=== PATIENT | female | born 1940 | race Caucasian/White ===

== ENCOUNTER 2017-11-25 11:23 | Inpatient (IN) ==
[2017-11-25] MEDS ORDERED: Naloxone Inj 2 MG/2 ML Vial IV.PUSH ONE ×3 (11:48→23:30)
[2017-11-25] MEDS ORDERED: Sod Chloride 0.9% Inj 1,000 ML IV.SIG ONE (11:48)
--- NOTE | 2017-11-25 12:19 | ED ---
HPI General Chief Complaint: Altered Mental Status Stated Complaint: Altered Mental Status Time Seen by Provider: 11/25/17 11:48 Source: patient and family Mode of arrival: EMS Limitations: altered mental status History of Present Illness HPI narrative: 77-year-old female patient with history of DVT and PE, currently on Coumadin, hypertension, pacemaker, CHF, or sent to the ER today brought in by response team from the fifth floor parking garage, apparently according to the she had called him at 10 PM last night and had told him that the car was not starting, and that she was going to be spending the night with friends, and when he came to look for the car today found her unresponsive in the car. She was given a dose of Narcan in the car by the rapid response team and it was more arousable after that but she falls asleep, arousable with some sternal rubs, poor respiration effort. She was given oxygen, saturations were in the 80s. She is a DNR according to the and when she was more arousable also confirms this, does not want to be intubated. I gave her 2 of Narcan she was a bit more arousable but still disoriented, poor breathing effort still. She does not know what happened, states that her car was not starting, but does not really remember what happened after that. Related Data Home Medications Medication Instructions Recorded Confirmed acetaminophen-codeine 1 tab PO Q6-8H PRN 11/25/17 11/25/17 [Tylenol-Codeine #3] furosemide [Lasix] 20 mg PO DAILY 11/25/17 11/25/17 tramadol 50 mg PO BID PRN 11/25/17 11/25/17 Allergies Allergy/AdvReac Type Severity Reaction Status Date / Time No Known Allergies Allergy Unverified 11/25/17 11:48 Review of Systems ROS Unobtainable unobtainable due to mental status PMFSH Medical History Medical History CHF (congestive heart failure) (Acute) Hx of hysterectomy (Acute) Pacemaker (Acute) Surgical History Surgical History History of total left knee replacement (TKR) (Acute) Hx of appendectomy (Acute) Hx of cardiac catheterization (Acute) Hx of cholecystectomy (Acute) Social History Social History Substance History: No History of Abuse Smoking Status: Former smoker Tobacco Type: Cigarettes How Often Do You Have a Drink Containing Alcohol: Never Recent Travel in [facility] within the Last 8 Weeks: No Recent Out of Country Travel within the Last 8 Weeks: No Immunization History Tetanus Immunization: Unsure Hx Influenza Vaccine This Season: Unable to Assess Exam Narrative Exam Narrative: GENERAL: Well-developed elderly white female patient currently in moderate distress, lethargic, barely arousable, sonorous respirations. SKIN: Focused skin assessment warm/dry. HEAD: Atraumatic. Normocephalic. EYES: Pupils equal and round. No scleral icterus. No injection or drainage. ENT: No nasal bleeding or discharge. Mucous membranes pink and moist. NECK: Trachea midline. No JVD. CARDIOVASCULAR: Regular rate and rhythm. No murmur appreciated. RESPIRATORY: No accessory muscle use. Left basilar crackles. Breath sounds equal bilaterally. GASTROINTESTINAL: Abdomen soft, non-tender, nondistended. Hepatic and splenic margins not palpable. MUSCULOSKELETAL: No obvious deformities. No clubbing. No cyanosis. No edema. NEUROLOGICAL: Lethargic. No obvious cranial nerve deficits. Motor grossly within normal limits. Slurred speech. PSYCHIATRIC: Lethargic, unable to assess; insight and judgment poor. Course Initial Documented Vital Signs Temperature 98.5 F 11/25/17 11:34 Pulse Rate 71 11/25/17 11:34 Respiratory Rate 30 H 11/25/17 11:34 Blood Pressure 89/50 L 11/25/17 11:34 Pulse Oximetry 92 L 11/25/17 11:34 Last Documented Vital Signs Temperature 98.5 F 11/25/17 11:34 Pulse Rate 80 11/25/17 14:00 Respiratory Rate 22 11/25/17 14:00 Blood Pressure 106/54 L 11/25/17 14:00 Pulse Oximetry 95 11/25/17 14:00 Medical Decision Making MDM Narrative Medical decision making narrative: EKG did not show significant dysrhythmias, paced rhythm. She was initially hypotensive in the ER and IV fluids were initiated. Patient had some initial response to Narcan and additional 2 mg of Narcan was given in the ER with improvement in mental status although she still quite disoriented. Apparently patient has been there all night, had called at 10 PM last night stating that her car would not start and she was in the fifth floor parking garage in [facility]. She currently not able to give me much further history. confirms that she has a DNR. Patient also states that she did not want to be intubated once she was able to talk and her as talking about possible intubation. At this point, my plan would be to admit the patient for further treatment and evaluation. Case is discussed with [facility] resident service for admission. Differential Diagnosis Differential Diagnosis: Opiate overdose versus sepsis versus dehydration versus acute intracranial processes Lab Data Lab results reviewed: Yes I reviewed the patient's lab results. Result diagrams: 11/25/17 12:00 11/25/17 12:00 Lab Results 11/25/17 11/25/17 11/25/17 Range/Units 11:48 12:00 12:00 WBC 9.0 (4.0-11.0) th/mm3 RBC 4.30 (4.00-5.30) mil/mm3 Hgb 11.4 L (11.6-15.3) gm/dL Hct 37.3 (35.0-46.0) % MCV 86.8 (80.0-100.0) fL MCH 26.6 L (27.0-34.0) pg MCHC 30.6 L (32.0-36.0) % RDW 17.7 H (11.6-17.2) % Plt Count 252 (150-450) th/mm3 MPV 8.9 (7.0-11.0) fL Neut % (Auto) 92.6 H (16.0-70.0) % Lymph % (Auto) 4.3 L (9.0-44.0) % [place] % (Auto) 2.9 (0.0-8.0) % Eos % (Auto) 0.0 (0.0-4.0) % Baso % (Auto) 0.2 (0.0-2.0) % Neut # (Auto) 8.3 H (1.8-7.7) th/mm3 Lymph # (Auto) 0.4 L (1.0-4.8) th/mm3 [place] # (Auto) 0.3 (0.0-0.9) th/mm3 Eos # (Auto) 0.0 (0.0-0.4) th/mm3 Baso # (Auto) 0.0 (0.0-0.2) th/mm3 WBC Differential . Differential Comment Auto diff final PT 16.7 H (9.8-11.6) sec INR 1.7 Ratio Patient Temperature 98.6 O2 Saturation 91 (90-100) % ABG pH 7.25 L* (7.380-7.420) ABG pCO2 45 H (38-42) mmHg ABG pO2 79 (61-120) mmHg ABG HCO3 19 L (22-26) mmol/L ABG O2 Content 13.6 (12.0-20.0) Vol % ABG Base Excess -7.1 L (-2-2) mmol/L ABG Methemoglobin 1.3 (0-2) % Hemoglobin 10.5 L (12.0-16.0) G/DL Carboxyhemoglobin 0.9 (0-4) % Inspired O2 21 % Critical Value Yes Sodium (136-145) meq/L Potassium (3.5-5.1) meq/L Chloride (98-107) meq/L Carbon Dioxide (21.0-32.0) meq/L Anion Gap (5-15) meq/L BUN (7-18) mg/dL Creatinine (0.50-1.00) mg/dL Estimated GFR (>89) mL/min Random Glucose (74-106) mg/dL Calcium (8.5-10.1) mg/dL Total Bilirubin (0.2-1.0) mg/dL AST (15-37) U/L ALT (10-53) U/L Alkaline Phosphatase (45-117) U/L Troponin I (0.02-0.05) ng/mL B-Natriuretic Peptide (0-100) pg/mL Total Protein (6.4-8.2) g/dL Albumin (3.4-5.0) g/dL Acetaminophen (10.0-30.0) mcg/mL Serum Alcohol (0-5) mg/dL 11/25/17 11/25/17 Range/Units 12:00 12:00 WBC (4.0-11.0) th/mm3 RBC (4.00-5.30) mil/mm3 Hgb (11.6-15.3) gm/dL Hct (35.0-46.0) % MCV (80.0-100.0) fL MCH (27.0-34.0) pg MCHC (32.0-36.0) % RDW (11.6-17.2) % Plt Count (150-450) th/mm3 MPV (7.0-11.0) fL Neut % (Auto) (16.0-70.0) % Lymph % (Auto) (9.0-44.0) % [place] % (Auto) (0.0-8.0) % Eos % (Auto) (0.0-4.0) % Baso % (Auto) (0.0-2.0) % Neut # (Auto) (1.8-7.7) th/mm3 Lymph # (Auto) (1.0-4.8) th/mm3 [place] # (Auto) (0.0-0.9) th/mm3 Eos # (Auto) (0.0-0.4) th/mm3 Baso # (Auto) (0.0-0.2) th/mm3 WBC Differential Differential Comment PT (9.8-11.6) sec INR Ratio Patient Temperature O2 Saturation (90-100) % ABG pH (7.380-7.420) ABG pCO2 (38-42) mmHg ABG pO2 (61-120) mmHg ABG HCO3 (22-26) mmol/L ABG O2 Content (12.0-20.0) Vol % ABG Base Excess (-2-2) mmol/L ABG Methemoglobin (0-2) % Hemoglobin (12.0-16.0) G/DL Carboxyhemoglobin (0-4) % Inspired O2 % Critical Value Sodium 141 (136-145) meq/L Potassium 5.0 (3.5-5.1) meq/L Chloride 110 H (98-107) meq/L Carbon Dioxide 20.5 L (21.0-32.0) meq/L Anion Gap 11 (5-15) meq/L BUN 24 H (7-18) mg/dL Creatinine 1.77 H (0.50-1.00) mg/dL Estimated GFR 28 L (>89) mL/min Random Glucose 111 H (74-106) mg/dL Calcium 8.3 L (8.5-10.1) mg/dL Total Bilirubin 0.5 (0.2-1.0) mg/dL AST 54 H (15-37) U/L ALT 26 (10-53) U/L Alkaline Phosphatase 149 H (45-117) U/L Troponin I 0.03 (0.02-0.05) ng/mL B-Natriuretic Peptide 280 H (0-100) pg/mL Total Protein 6.4 (6.4-8.2) g/dL Albumin 3.2 L (3.4-5.0) g/dL Acetaminophen 21.9 (10.0-30.0) mcg/mL Serum Alcohol Less than 3 (0-5) mg/dL Imaging Data Attestation: I personally reviewed and interpreted this imaging study as follows : Radiologist's impression: Chest X-Ray 11/25/17 11:48 CONCLUSION: 1. Asymmetric interstitial prominence predominantly on the right. Findings could represent asymmetric pulmonary edema or developing infiltrate. 2. Cardiomegaly. Head CT 11/25/17 11:49 CONCLUSION: 1. No acute intracranial abnormality. . ECG Data Attestation: I personally reviewed and interpreted this ECG as follows: Interpretation: EKG shows a ventricular paced rhythm at a rate of 70 bpm. No signs of acute ST elevations or depressions. Discharge Plan Discharge Disposition Patient Disposition: 30 Still Patient Discharge Condition Condition: Fair Discharge Details Anticipated Discharge Date: 11/25/17 Diagnosis: Altered mental status, Opioid overdose Physicians Team ED Provider: Feliberto Neri Primary Care Provider: UNKNOWN, Rxs /Orders / Referrals /Forms Prescriptions: No Action acetaminophen-codeine [Tylenol-Codeine #3] 300-30 mg Tablet 1 tab PO Q6-8H PRN (Reason: Pain) RF: 0 tramadol 50 mg Tablet 50 mg PO BID PRN (Reason: Pain) RF: 0 furosemide [Lasix] 20 mg Tablet 20 mg PO DAILY RF: 0 Discharge Interventions Interventions: Vital Signs Last Done: 11/25/17 14:00 Status ED Status: With Doctor
[2017-11-25 12:27] LABS: ABG Base Excess -7.1 mmol/L (-2-2); ABG PCO2 45 mmHg (38-42); ABG PO2 79 mmHg (61-120)
[2017-11-25 12:29] LABS: Baso % (Auto) 0.2 % (0.0-2.0); Hematocrit 37.3 % (35.0-46.0); Hemoglobin 11.4 gm/dL (11.6-15.3); Lymph # (Auto) 0.4 th/mm3 (1.0-4.8); Lymph % (Auto) 4.3 % (9.0-44.0); Mean Corpuscular Hemoglobin 26.6 pg (27.0-34.0); Mean Corpuscular Volume 86.8 fL (80.0-100.0); Mean Platelet Volume 8.9 fL (7.0-11.0); Mono # (Auto) 0.3 th/mm3 (0.0-0.9); Mono % (Auto) 2.9 % (0.0-8.0); Neut # (Auto) 8.3 th/mm3 (1.8-7.7); Neut % (Auto) 92.6 % (16.0-70.0); Platelet Count 252 th/mm3 (150-450); Red Cell Distribution Width 17.7 % (11.6-17.2)
[2017-11-25 12:33] LABS: INR 1.7 Ratio; Prothrombin Time 16.7 sec (9.8-11.6)
[2017-11-25 12:34] LABS: Mean Corpuscular HGB Conc 30.6 % (32.0-36.0)
[2017-11-25 12:44] LABS: Alanine Aminotransferase 26 U/L (10-53); Albumin 3.2 g/dL (3.4-5.0); Anion Gap 11 meq/L (5-15); Aspartate Aminotransferase 54 U/L (15-37); Blood Urea Nitrogen 24 mg/dL (7-18); Calcium 8.3 mg/dL (8.5-10.1); Carbon Dioxide 20.5 meq/L (21.0-32.0); Chloride 110 meq/L (98-107); Glomerular Filtration Rate 28 mL/min (>89); Glucose,Random 111 mg/dL (74-106); Sodium 141 meq/L (136-145)
--- NOTE | 2017-11-25 12:46 | XR ---
EXAM DATE: 11/25/2017 12:41 PM EDT AGE/SEX: 77 years / Female INDICATIONS: Short of breath and congestion. CLINICAL DATA: This is the patient's initial encounter. Patient reports that signs and symptoms have been present for 1 day and indicates a pain score of 0/10. MEDICAL/SURGICAL HISTORY: None. None. COMPARISON: No prior exams available for comparison. FINDINGS: A single AP view of the chest demonstrates asymmetric interstitial prominence predominantly on the ri ght. Heart size is prominent. Left subclavian bipolar pacer is radiographically intact. Osseous struc tures are intact CONCLUSION: 1. Asymmetric interstitial prominence predominantly on the right. Findings could represent asymmetri c pulmonary edema or developing infiltrate. 2. Cardiomegaly. Electronically signed by: Evangelist Garcia MD 11/25/2017 12:45 PM EDT
[2017-11-25 12:48] LABS: Acetaminophen 21.9 mcg/mL (10.0-30.0); Alkaline Phosphatase 149 U/L (45-117); Total Protein 6.4 g/dL (6.4-8.2); Troponin I 0.03 ng/mL (0.02-0.05)
--- NOTE | 2017-11-25 13:34 | CT ---
EXAM DATE: 11/25/2017 1:30 PM EDT AGE/SEX: 77 years / Female INDICATIONS: Altered mental status, found unresponsive. CLINICAL DATA: This is the patient's initial encounter. Patient reports that signs and symptoms have been present for 1 day and indicates a pain score of Nonresponsive. MEDICAL/SURGICAL HISTORY: Congestive heart failure. Pacemaker. Hysterectomy. RADIATION DOSE: 36.78 CTDI (mGy) COMPARISON: No prior exams available for comparison. TECHNIQUE: CT of the head without contrast. Using automated exposure control and adjustment of the mA and/or kV according to patient size, radiation dose was kept as low as reasonably achievable to ob tain optimal diagnostic quality images. DICOM format image data is available electronically for revi ew and comparison. FINDINGS: Cerebrum: The ventricles are normal for age. No evidence of midline shift, mass lesion, hemorrhage or acute infarction. No extraaxial fluid collections are seen. Posterior Fossa: The cerebellum and brainstem are intact. The 4th ventricle is midline. The cerebe llopontine angle is unremarkable. Extracranial: The visualized portion of the orbits is intact. Skull: The calvaria is intact. No evidence of skull fracture. CONCLUSION: 1. No acute intracranial abnormality. . Electronically signed by: Carlos Montero MD 11/25/2017 1:32 PM EDT
[2017-11-25 14:28] LABS: Amorphous Sediment,Urine Rare /hpf; Bacteria,Urine Few /hpf; Bilirubin,Urine Negative (Negative); Clarity,Urine Cloudy (Clear); Color,Urine Amber (Yellw/Straw); Glucose,Urine (UA) Negative (Negative); Hyaline Casts,Urine 46 /lpf (0-3); Leukocyte Esterase,Urine Trace (Negative); Mucus,Urine Few /lpf (Occasional); Nitrite,Urine Negative (Negative); Specific Gravity,Urine 1.026 (1.002-1.035); Squamous Epithelial Cell,Urine 1 /hpf (0-5)
[2017-11-25] MEDS ORDERED: Acetaminophen 325 MG Tablet PO PRN (15:48)
[2017-11-25] MEDS ORDERED: Bisacodyl 10 MG Supp RECTAL PRN (15:48)
[2017-11-25] MEDS ORDERED: Furosemide 20 MG Tablet PO SCH (16:00)
--- NOTE | 2017-11-25 16:01 | P.HPFP ---
History of Present Illness Primary Care Physician: UNKNOWN History of Present Illness: 77-year-old female, unknown past medical history, presents after being found unconscious in car by her . Following history is obtained from the ED physician and the , because the patient does not remember the series of advance and is altered during the time of exam. Patient was leaving the hospital yesterday and called her she got in her car and said that her car would not start. She said that she is going to go to a friend's house instead of going back to her [place]. The said okay, and did not hear from her. He came to the hospital this morning and found her unconscious in her car. Her GCS was 3 at that time and she was hypotensive, and given IV fluids and Narcan and improved. She was previously in respiratory distress, and has been improving over the day today. Per , the patient uses a heavy amount of Tylenol with codeine and tramadol for her knee replacement. There is suspicion that she has overdosed. - Diagnosis (1) Respiratory distress (2) Altered mental status (3) Opioid overdose (4) CHF (congestive heart failure) (5) Elevated troponin (6) Elevated serum creatinine (7) Nutrition, metabolism, and development symptoms Inpatient Certification: I certify that the inpatient services were ordered in accordance with Medicare regulations governing the order. This includes certification that hospital inpatient services are reasonable and necessary and in the case of services not specified as inpatient-only under 42 CFR 419.22(n), that they are appropriately provided as inpatient services in accordance to with the 2-midnight benchmark under 43 CFR 412.3(e) Review of Systems unobtainable due to mental status (Patient is sleeping when we come into the room, difficult to wake up) PMFSH - History History Provided By: Family Member - Medical History Medical History: Medical History (Last Reviewed 11/25/17 @ 17:30 by Claudine Lassiter MD, R2) CHF (congestive heart failure) Hx of hysterectomy Pacemaker - Surgical History Surgical History: Surgical History (Last Reviewed 11/25/17 @ 17:30 by Claudine Lassiter MD, R2) History of total left knee replacement (TKR) Hx of appendectomy Hx of cardiac catheterization Hx of cholecystectomy - Tobacco History Smoking Status: Former smoker Tobacco Type: Cigarettes - Alcohol History How Often Do You Have a Drink Containing Alcohol: Never - Substance Use History Substance History: No History of Abuse - Travel History Recent Travel in the [place] Within the Last 8 Weeks: No Recent Travel Out of the Country Within the Last 8 Weeks: No - Immunization History Tetanus Immunization: Unsure Hx Influenza Vaccine This Season: Unable to Assess Medications and Allergies Allergies Allergy/AdvReac Type Severity Reaction Status Date / Time No Known Allergies Allergy Unverified 11/25/17 11:48 Home Medications Medication Instructions Recorded Confirmed Type acetaminophen-codeine 1 tab PO Q6-8H PRN 11/25/17 11/25/17 History [Tylenol-Codeine #3] furosemide [Lasix] 20 mg PO DAILY 11/25/17 11/25/17 History tramadol 50 mg PO BID PRN 11/25/17 11/25/17 History Exam Vital signs: Vital Signs 11/25/17 11:34 11/25/17 11:49 11/25/17 11:51 Temperature 98.5 F Pulse Rate 71 71 70 Respiratory Rate 30 H 30 H Blood Pressure 89/50 L 96/53 L Pulse Oximetry 92 L 92 L 90 L 11/25/17 12:51 11/25/17 13:00 11/25/17 14:00 Temperature Pulse Rate 68 68 80 Respiratory Rate 25 H 25 H 22 Blood Pressure 87/54 L 90/53 L 106/54 L Pulse Oximetry 95 93 L 95 11/25/17 15:00 Temperature Pulse Rate 80 Respiratory Rate 20 Blood Pressure 106/54 L Pulse Oximetry 96 Intake & Output 11/24/17 11/25/17 11/25/17 18:59 06:59 18:59 Weight 90.718 kg - Constitutional no acute distress (Patient very tired, falling asleep and not making sense) - Routine HEENT Exam Head: Present: normocephalic Eye: Present: normal accommodation ENT: Present: mucous membranes moist - Routine Neck Exam Present: supple. Absent: carotid bruit - Routine Respiratory Exam Present: accessory muscle use, rhonchi, wheezes (Patient cannot sit up for exam , auscultated anteriorly), crackles - Routine Cardiovascular Exam Present: RRR, S1, S2 - Routine Abdominal Exam Present: soft, normoactive bowel sounds. Absent: tenderness - Routine Extremities Exam Absent: cyanosis, clubbing, edema, calf tenderness - Routine Skin Exam Present: intact. Absent: cyanosis, erythema - Routine Neurological Exam Present: alert, oriented X3, CN II-XII intact, normal speech. Absent: sensory deficit, motor deficit, facial asymmetry Results - Labs Result diagrams: 11/25/17 12:00 11/25/17 12:00 Abnormal lab results 11/25/17 11/25/17 11/25/17 Range/Units 11:48 12:00 12:00 Hgb 11.4 L (11.6-15.3) gm/dL MCH 26.6 L (27.0-34.0) pg MCHC 30.6 L (32.0-36.0) % RDW 17.7 H (11.6-17.2) % Neut % (Auto) 92.6 H (16.0-70.0) % Lymph % (Auto) 4.3 L (9.0-44.0) % Neut # (Auto) 8.3 H (1.8-7.7) th/mm3 Lymph # (Auto) 0.4 L (1.0-4.8) th/mm3 PT 16.7 H (9.8-11.6) sec ABG pH 7.25 L* (7.380-7.420) ABG pCO2 45 H (38-42) mmHg ABG HCO3 19 L (22-26) mmol/L ABG Base Excess -7.1 L (-2-2) mmol/L Hemoglobin 10.5 L (12.0-16.0) G/DL Chloride (98-107) meq/L Carbon Dioxide (21.0-32.0) meq/L BUN (7-18) mg/dL Creatinine (0.50-1.00) mg/dL Estimated GFR (>89) mL/min Random Glucose (74-106) mg/dL Calcium (8.5-10.1) mg/dL AST (15-37) U/L Alkaline Phosphatase (45-117) U/L B-Natriuretic Peptide (0-100) pg/mL Albumin (3.4-5.0) g/dL Urine Clarity (Clear) Urine Protein (Neg-Trace) mg/dL Urine Urobilinogen (Less than 2) mg/dL Ur Leukocyte Esterase (Negative) Urine RBC (0-3) /hpf Urine WBC (0-5) /hpf Amorphous Sediment (None) /hpf Urine Bacteria (None) /hpf Urine Mucus (Occasional) /lpf 11/25/17 11/25/17 11/25/17 Range/Units 12:00 12:00 14:00 Hgb (11.6-15.3) gm/dL MCH (27.0-34.0) pg MCHC (32.0-36.0) % RDW (11.6-17.2) % Neut % (Auto) (16.0-70.0) % Lymph % (Auto) (9.0-44.0) % Neut # (Auto) (1.8-7.7) th/mm3 Lymph # (Auto) (1.0-4.8) th/mm3 PT (9.8-11.6) sec ABG pH (7.380-7.420) ABG pCO2 (38-42) mmHg ABG HCO3 (22-26) mmol/L ABG Base Excess (-2-2) mmol/L Hemoglobin (12.0-16.0) G/DL Chloride 110 H (98-107) meq/L Carbon Dioxide 20.5 L (21.0-32.0) meq/L BUN 24 H (7-18) mg/dL Creatinine 1.77 H (0.50-1.00) mg/dL Estimated GFR 28 L (>89) mL/min Random Glucose 111 H (74-106) mg/dL Calcium 8.3 L (8.5-10.1) mg/dL AST 54 H (15-37) U/L Alkaline Phosphatase 149 H (45-117) U/L B-Natriuretic Peptide 280 H (0-100) pg/mL Albumin 3.2 L (3.4-5.0) g/dL Urine Clarity Cloudy H (Clear) Urine Protein 30 H (Neg-Trace) mg/dL Urine Urobilinogen 2.0 H (Less than 2) mg/dL Ur Leukocyte Esterase Trace H (Negative) Urine RBC 5 H (0-3) /hpf Urine WBC 7 H (0-5) /hpf Amorphous Sediment Rare H (None) /hpf Urine Bacteria Few H (None) /hpf Urine Mucus Few H (Occasional) /lpf Short CBC 11/25/17 Range/Units 12:00 WBC 9.0 (4.0-11.0) th/mm3 Hgb 11.4 L (11.6-15.3) gm/dL Hct 37.3 (35.0-46.0) % Plt Count 252 (150-450) th/mm3 BMP 11/25/17 12:00 Sodium 141 Potassium 5.0 Chloride 110 H Carbon Dioxide 20.5 L BUN 24 H Creatinine 1.77 H Calcium 8.3 L Cardiac Enzymes 11/25/17 Range/Units 12:00 Troponin I 0.03 (0.02-0.05) ng/mL Liver Function 11/25/17 Range/Units 12:00 Total Bilirubin 0.5 (0.2-1.0) mg/dL AST 54 H (15-37) U/L ALT 26 (10-53) U/L Alkaline Phosphatase 149 H (45-117) U/L Albumin 3.2 L (3.4-5.0) g/dL Urine 11/25/17 Range/Units 14:00 Urine Color Maura (Yellw/Straw) Urine Clarity Cloudy H (Clear) Urine pH 5.0 (5.0-8.5) Ur Specific [place] 1.026 (1.002-1.035) Urine Protein 30 H (Neg-Trace) mg/dL Urine Glucose (UA) Negative (Negative) mg/dL - Imaging Impressions Chest X-Ray 11/25/17 11:48 CONCLUSION: 1. Asymmetric interstitial prominence predominantly on the right. Findings could represent asymmetric pulmonary edema or developing infiltrate. 2. Cardiomegaly. Head CT 11/25/17 11:49 CONCLUSION: 1. No acute intracranial abnormality. . Caprini VTE Risk Assessment Caprini VTE Risk Assessment: No/Low Risk (score <= 1) Caprini Risk Assessment Model: Point Value = 1 Point Value = 2 Point Value = 3 Point Value = 5 Age 41-60 Minor surgery BMI > 25 kg/m2 Swollen legs Varicose veins or History of unexplained or recurrent spontaneous Oral contraceptives or hormone replacement Sepsis (< 1 month) Serious lung disease, including pneumonia (< 1 month) Abnormal pulmonary function Acute myocardial infarction Congestive heart failure (< 1 month) History of inflammatory bowel disease Medical patient at bed rest Age 61-74 Arthroscopic surgery Major open surgery (> 45 min) Laparoscopic surgery (> 45 min) Malignancy Confined to bed (> 72 hours) Immobilizing plaster cast Central venous access Age >= 75 History of VTE Family history of VTE Factor V Leiden Prothrombin [id number] Lupus anticoagulant Anticardiolipin antibodies Elevated serum homocysteine Heparin-induced thrombocytopenia Other congenital or acquired thrombophilia Stroke (< 1 month) Elective arthroplasty Hip, pelvis, or leg fracture Acute spinal cord injury (< 1 month) Prophylaxis Regimen: Total Risk Factor Score Risk Level Prophylaxis Regimen 0-1 Low Early ambulation 2 Moderate Order ONE of the following: *Sequential Compression Device (SCD) *Heparin 5000 units SQ BID 3-4 Higher Order ONE of the following medications: *Heparin 5000 units SQ TID *Enoxaparin/Lovenox 40 mg SQ daily (WT < 150 kg, CrCl > 30 mL/min) *Enoxaparin/Lovenox 30 mg SQ daily (WT < 150 kg, CrCl > 10-29 mL/min) *Enoxaparin/Lovenox 30 mg SQ BID (WT < 150 kg, CrCl > 30 mL/min) AND/OR *Sequential Compression Device (SCD) 5 or more Highest Order ONE of the following medications: *Heparin 5000 units SQ TID (Preferred with Epidurals) *Enoxaparin/Lovenox 40 mg SQ daily (WT < 150 kg, CrCl > 30 mL/min) *Enoxaparin/Lovenox 30 mg SQ daily (WT < 150 kg, CrCl > 10-29 mL/min) *Enoxaparin/Lovenox 30 mg SQ BID (WT < 150 kg, CrCl > 30 mL/min) AND *Sequential Compression Device (SCD) Assessment and Plan - Assessment (1) Respiratory distress Code(s): R06.03 - Acute respiratory distress Status: Acute Plan: Due to opiate overdose versus CHF fluid overload versus COPD exacerbation versus pneumonia versus PE Patient with GCS of 3 initially in ED, poor respiration effort, saturations in the 80s on site On exam respiratory rate 20, blood pressure 97/52, 95% O2 on 10 L O2 ABG: PH 7.25, bicarb 19 Follow-up repeat ABG Chest x-ray: Asymmetric interstitial prominence on right, asymmetric pulmonary edema versus developing infiltrate. Cardiomegaly Follow-up pro calcitonin Follow-up BNP If repeat ABG continues to be poor, we may consider monitoring in the ICU (2) Altered mental status Code(s): R41.82 - Altered mental status, unspecified Status: Acute Plan: Due to opiate overdose versus CHF fluid overload versus COPD exacerbation versus pneumonia versus PE versus MT versus stroke CT head negative Improvement seen status post Narcan 2 mg IV push, with 1 L IV bolus normal saline Follow-up plan as above Follow-up ACS workup Stroke workup low on differential at this time (3) Opioid overdose Code(s): T40.2X1A - Poisoning by other opioids, accidental (unintentional), initial encounter Status: Acute Plan: Status post Narcan IM 2 mg Respiratory rate 20, will transfer to ICU if ABG continues to deteriorate or patient begins to hyperventilate, requiring additional Narcan No indication for additional Narcan at this time (4) CHF (congestive heart failure) Code(s): I50.9 - Heart failure, unspecified Status: Acute Plan: History of CHF with an ejection fraction of 30% per family Planes evidence of edema on chest x-ray Added IV furosemide 40 mg IV daily Continue home p.o. n.p.o. as tolerated as well (5) Elevated troponin Code(s): R74.8 - Abnormal levels of other serum enzymes Status: Acute Plan: Initial troponin 0.03, subsequent troponin 0 0.12, no complaints of CP f/u stat EKG f/u 3rd troponin May be due to MT versus PE versus renal dysfunction (6) Elevated serum creatinine Code(s): R79.89 - Other specified abnormal findings of blood chemistry Status : Acute Plan: Creat 1.77, unknown baseline STORMY vs CKD caution w/ nephrotoxins, NSAIDS (7) Nutrition, metabolism, and development symptoms Code(s): R63.8 - Other symptoms and signs concerning food and fluid intake Status: Acute
[2017-11-25 17:16] LABS: Troponin I 0.12 ng/mL (0.02-0.05)
[2017-11-25 17:29] LABS: CKMB Percent 2.5 % (0.0-4.0); Creatine Kinase MB 19.8 ng/mL (0.5-3.6)
[2017-11-25 18:18] LABS: ABG Base Excess -10.4 mmol/L (-2-2); ABG PCO2 47 mmHg (38-42); ABG PO2 84 mmHg (61-120)
[2017-11-25] MEDS ORDERED: Azithromycin Inj 500 MG in Sodium Chlor 0.9% Inj 250 ML IV.SIG SCH (20:00)
[2017-11-25 21:15] LABS: ABG Base Excess -12.5 mmol/L (-2-2); ABG PCO2 44 mmHg (38-42); ABG PO2 83 mmHg (61-120)
--- NOTE | 2017-11-25 21:31 | XR ---
EXAM DATE: 11/25/2017 9:20 PM EDT AGE/SEX: 77 years / Female INDICATIONS: Short of breath. CLINICAL DATA: This is the patient's subsequent encounter. Patient reports that signs and symptoms h ave been present for 1 day and indicates a pain score of Nonresponsive. MEDICAL/SURGICAL HISTORY: Non-responsive. Non-responsive. COMPARISON: [facility], CHEST 1V SINGLE AP, 11/25/2017. . FINDINGS: There is worsening parenchymal consolidation, especially right upper lobe and left base. No large eff usions seen. No pneumothorax. Heart size stable, upper limits of normal. Cardiac pacer again noted. CONCLUSION: Worsening bilateral pulmonary infiltrates, most conspicuously in the right upper lobe and left base. Electronically signed by: Yordy Amin MD 11/25/2017 9:29 PM EDT
[2017-11-25] MEDS ORDERED: POTASSIUM CHLORIDE IV.CONT SCH (22:00)
[2017-11-25] MEDS ORDERED: SODIUM BICARBONATE IV.CONT SCH (22:00)
[2017-11-25] MEDS ORDERED: [UNRECOGNIZED DRUG - OTHER] IV.CONT SCH (22:00)
[2017-11-25] MEDS ORDERED: Piperacil/Tazo 2.25 GM Premix 50 ML IV.SIG SCH (22:00)
--- NOTE | 2017-11-25 22:22 | P.PNADD ---
Addendum to Inpatient Note Reason for Addendum: Additional Documentation Additional information: S: Patient was evaluated by residents due to ABGs showing pH of 7.17, pCO2 of 47 , pO2 84, HCO3 17 the patient was admitted for altered mental status due to suspected opioid overdose. Patient was laying in bed planing of abdominal pain. Patient was alert and oriented 3, showing improvement in mentation from admission. She denied any chest pain, shortness of breath or dizziness. She reported she has chronic back pain history and has a defibrillator. Denied any history of lung disease. The patient was more alert she still dozing on and off to sleep. O: Temp 97.9F HR: 69 RR: 12 O2 sat: 94% at 10L simple mask BP: 101/55 GEN: mild distress complaining of abdominal pain along her umbilicus Cardio: RRR, Normal S1-S2, no M/g/R Resp: Coarse breath sounds throughout lung guthrie bilaterally Abdominal: Obese abdomen, soft, positive bowel sounds, mild tenderness to palpation across umbilicus, no masses or hepatosplenomegaly, no guarding or rebound Ext: Nontender calves bilaterally, +2 DP pulse BL A/P: Patient is a 77-year-old female with past medical history of chronic back pain admitted for altered mental status, now improving. Patient is now alert and oriented 3. Being evaluated for metabolic acidosis due to suspected purulent overdose. Afebrile, repeat respiratory rate of 12. Anion gap of 11 on admission. Lab/test ordered: Repeat chest x-ray showing: Worsening bilateral pulmonary infiltrates right upper lobe and left base. -Patient antibiotic switched to Zosyn (renally dosed) due to concern for aspiration pneumonia and worsening chest x-ray compared to admission. Ceftriaxone was discontinued. Repeat ABG: Showed continued acidosis but no CO2 retention, with pH of 7.15, PCO2 of 44, PO2 of 83 and bicarb of 15 -IV bicarb of 50 mEq ordered to be given. -Plan to repeat ABG after 2 hours of bicarb administration to monitor metabolic acidosis. -Consider transferring patient to ICU no improvement in acidosis for closer monitoring. Tylenol IV ordered for pain control to patient's elevated creatinine at 1.77 Repeat respiratory rate of 12 upon reevaluation. -Narcan 1 mg IV given Follow-up EKG CMP Case discussed with attending Dr. Roman
[2017-11-25 22:44] LABS: Alanine Aminotransferase 35 U/L (10-53); Albumin 3.1 g/dL (3.4-5.0); Alkaline Phosphatase 128 U/L (45-117); Anion Gap 16 meq/L (5-15); Aspartate Aminotransferase 108 U/L (15-37); Blood Urea Nitrogen 33 mg/dL (7-18); Calcium 8.7 mg/dL (8.5-10.1); Carbon Dioxide 17.4 meq/L (21.0-32.0); Chloride 110 meq/L (98-107); Creatine Kinase 1024 U/L (26-192); Glomerular Filtration Rate 17 mL/min (>89); Glucose,Random 102 mg/dL (74-106); Potassium 4.3 meq/L (3.5-5.1); Sodium 143 meq/L (136-145); Total Protein 6.5 g/dL (6.4-8.2); Troponin I 0.17 ng/mL (0.02-0.05)
[2017-11-25] MEDS ORDERED: Naloxone Inj 0.4 MG/ML Vial ONE (22:45)
[2017-11-25 22:59] LABS: CKMB Percent 2.7 % (0.0-4.0)
[2017-11-26 00:40] LABS: ABG Base Excess -15.4 mmol/L (-2-2); ABG PCO2 38 mmHg (38-42); ABG PO2 96 mmHg (61-120)
--- NOTE | 2017-11-26 02:35 | XR ---
EXAM DATE: 11/26/2017 2:30 AM EDT AGE/SEX: 77 years / Female INDICATIONS: Shortness of breath. CLINICAL DATA: This is the patient's initial encounter. Patient reports that signs and symptoms have been present for 1 day and indicates a pain score of Nonresponsive. MEDICAL/SURGICAL HISTORY: Non-responsive. Pacemaker. COMPARISON: [facility], CHEST 1V SINGLE AP, 11/25/2017. . FINDINGS: Cardiomegaly, pacer/ICD device from a left subclavian transvenous approach, and aortic calcification again noted. There is parenchymal opacity overlying the right upper lobe, right infrahilar region and left lung base. Overall no significant interval change. CONCLUSION: No significant interval change. Electronically signed by: Lukas Jefferson MD 11/26/2017 2:33 AM EDT
--- NOTE | 2017-11-26 02:35 | XR ---
EXAM DATE: 11/26/2017 2:28 AM EDT AGE/SEX: 77 years / Female INDICATIONS: Diarrhea. CLINICAL DATA: This is the patient's initial encounter. Patient reports that signs and symptoms have been present for 1 day and indicates a pain score of Nonresponsive. MEDICAL/SURGICAL HISTORY: Non-responsive. Non-responsive. COMPARISON: No prior exams available for comparison. FINDINGS: Nonobstructive bowel gas pattern. No free air beneath the diaphragm. Patchy parenchymal consolidation in the lungs is seen. There are degenerative changes of the spine in the bone density is diminished. CONCLUSION: Nonobstructive bowel gas pattern. Electronically signed by: Lukas Jefferson MD 11/26/2017 2:34 AM EDT
--- NOTE | 2017-11-26 03:32 | CT ---
EXAM DATE: 11/26/2017 2:54 AM EDT AGE/SEX: 77 years / Female INDICATIONS: Abdomen pain. CLINICAL DATA: This is the patient's initial encounter. Patient reports that signs and symptoms have been present for 1 day and indicates a pain score of 10/10. MEDICAL/SURGICAL HISTORY: Cardiovascular disease. Pacemaker. Cholecystectomy. Appendectomy. Hysterectomy RADIATION DOSE: 23.45 CTDI (mGy) ; Patient body habitus COMPARISON: [facility] [place], ABDOMEN 2V FLAT & UPRIGHT, 11/26/2017. . TECHNIQUE: Multiple contiguous axial images were obtained through the abdomen. Images were obtained using multiple row detector helical technique. Using automated exposure control and adjustment of the mA and/or kV according to patient size, radiation dose was kept as low as reasonably achievable to o btain optimal diagnostic quality images. DICOM format image data is available electronically for rev iew and comparison. FINDINGS: There are scattered areas of parenchymal consolidation in the lower lobes. There is cardiomegaly. The patient has had previous gastric bypass procedure and there is a small hiatal hernia. Cholecystectom y clips are noted. Kidneys, adrenals, pancreas unremarkable. There is a nonspecific 1.1 cm low-densit y lesion in the spleen. There is diverticulosis of the sigmoid colon and descending colon without div erticulitis. The patient is status post appendectomy and hysterectomy. Urinary bladder is normal. No adenopathy or aneurysm. Atherosclerotic calcification of the aorta and iliac vessels are noted. IVC f ilter is present. The osseous structures demonstrate degenerative changes of the spine. CONCLUSION: 1. Diverticulosis without diverticulitis. 2. Bilateral pulmonary infiltrates. Electronically signed by: Lukas Jefferson MD 11/26/2017 3:31 AM EDT
[2017-11-26 03:36] LABS: ABG Base Excess -17.1 mmol/L (-2-2); ABG PCO2 35 mmHg (38-42); ABG PO2 94 mmHg (61-120)
[2017-11-26] MEDS ORDERED: Sodium Bicarbonate 8.4% Inj 50 MEQ/50 ML Syringe IV.PUSH ONE (04:37)
[2017-11-26] MEDS ORDERED: SODIUM BICARBONATE IV.CONT SCH (06:00)
[2017-11-26] MEDS ORDERED: Piperacil/Tazo 2.25 GM Premix 50 ML IV.SIG SCH (06:00)
[2017-11-26] MEDS ORDERED: POTASSIUM CHLORIDE IV.CONT SCH (06:00)
[2017-11-26] MEDS ORDERED: [UNRECOGNIZED DRUG - OTHER] IV.CONT SCH (06:00)
[2017-11-26 06:23] LABS: Baso % (Auto) 0.1 % (0.0-2.0); Eos # (Auto) 0.2 th/mm3 (0.0-0.4); Hematocrit 38.4 % (35.0-46.0); Hemoglobin 11.7 gm/dL (11.6-15.3); Lymph # (Auto) 0.4 th/mm3 (1.0-4.8); Lymph % (Auto) 4.8 % (9.0-44.0); Mean Corpuscular Hemoglobin 26.8 pg (27.0-34.0); Mean Platelet Volume 9.2 fL (7.0-11.0); Mono # (Auto) 0.6 th/mm3 (0.0-0.9); Mono % (Auto) 7.3 % (0.0-8.0); Neut # (Auto) 7.6 th/mm3 (1.8-7.7); Neut % (Auto) 85.8 % (16.0-70.0); Platelet Count 289 th/mm3 (150-450); Red Blood Count 4.36 mil/mm3 (4.00-5.30); Red Cell Distribution Width 17.7 % (11.6-17.2); White Blood Count 8.8 th/mm3 (4.0-11.0)
[2017-11-26 06:26] LABS: Mean Corpuscular HGB Conc 30.5 % (32.0-36.0)
[2017-11-26 06:51] LABS: Alanine Aminotransferase 81 U/L (10-53); Albumin 2.6 g/dL (3.4-5.0); Alkaline Phosphatase 96 U/L (45-117); Anion Gap 22 meq/L (5-15); Aspartate Aminotransferase 255 U/L (15-37); Blood Urea Nitrogen 39 mg/dL (7-18); Calcium 8.2 mg/dL (8.5-10.1); Carbon Dioxide 14.6 meq/L (21.0-32.0); Chloride 109 meq/L (98-107); Glomerular Filtration Rate 13 mL/min (>89); Glucose,Random 115 mg/dL (74-106); Lipase 385 U/L (73-393); Potassium 3.9 meq/L (3.5-5.1); Sodium 146 meq/L (136-145); Total Protein 5.9 g/dL (6.4-8.2)
[2017-11-26] MEDS ORDERED: Sodium Bicarbonate 8.4% Inj 150 MEQ in Dextrose 5% in Water Inj 850 ML IV.CONT SCH ×4 (07:00→10:00)
[2017-11-26] MEDS: Piperacil/Tazo 2.25 GM Premix 50 ML IV.SIG SCH ×2 (07:03→14:03)
[2017-11-26 07:05] LABS: INR 2.7 Ratio; Prothrombin Time 27.2 sec (9.8-11.6)
[2017-11-26 07:32] LABS: ABG Base Excess -17.3 mmol/L (-2-2); ABG PCO2 35 mmHg (38-42); ABG PO2 117 mmHg (61-120)
[2017-11-26 07:41] LABS: Lymphocytes 5 % (9-44); Monocytes 3 % (0-8); Myelocytes 2 % (0-0); Tallied Nucleated RBC 1 (0-0)
[2017-11-26 07:44] LABS: Platelet Estimate Normal (Normal); Platelet Morphology Normal (Normal)
[2017-11-26 07:46] LABS: Ovalocytes 1+
--- NOTE | 2017-11-26 08:05 | P.CONCC ---
History of Present Illness Service: Critical care Consult date: 11/26/17 Requesting Physician: Sofia Fallon Reason for Consult: Severe metabolic acidosis, AMS Primary Care Provider: UNKNOWN Chief Complaint: AMS History of Present Illness: Patient is a 77-year-old female with past medical history of congestive heart failure, ejection fraction 35% per , status post pacemaker placement, chronic back pain who was found unconscious in car by her . Patient chronically takes Tylenol with codeine and tramadol for pain, and there was suspicion of overdose. Her GCS was 3 at that time and patient was hypotensive, and given IV fluids and Narcan. Her respiratory status and mental status improved and she was admitted to [facility]. Patient was noted to be DNR/DNI. Initial ABG showed 7.25/45/19. Creat was 1.77. Patient was started on Zosyn and azithromycin for probable pneumonia Since admission patient had been clinically declining. She was transferred to ICU overnight for worsening pH on ABG. Today a.m. her pH was 7.1 PCO2 35 and base excess -17. She also noted to have waxing and waning levels of consciousness. Currently receiving bicarb drip and has already received 100 meq of bicarb push 100 IV. I evaluated the patient in the ICU. She is in moderate distress due to pain. She is oriented to person and sometimes to place. Waxing and waning level of consciousness. reiterated DNR/DNI status according to patient's previous wishes. Patient's lactic acid came back at 12.1. Her severe metabolic and lactic acidosis, along with abdominal pain and diarrhea concerning for mesenteric ischemia Review of Systems unobtainable due to mental status PMFSH - History History Provided By: Family Member - Medical History Medical History: Medical History (Last Reviewed 11/26/17 @ 07:56 by Jess Sabillon) CHF (congestive heart failure) Hx of hysterectomy Pacemaker - Surgical History Surgical History: Surgical History (Last Reviewed 11/26/17 @ 07:56 by Jess Sabillon) History of total left knee replacement (TKR) Hx of appendectomy Hx of cardiac catheterization Hx of cholecystectomy - Tobacco History Smoking Status: Former smoker Tobacco Type: Cigarettes - Alcohol History How Often Do You Have a Drink Containing Alcohol: Never - Substance Use History Substance History: No History of Abuse - Travel History Recent Travel in the [facility] Within the Last 8 Weeks: No Recent Travel Out of the Country Within the Last 8 Weeks: No - Immunization History Tetanus Immunization: Unsure Hx Influenza Vaccine This Season: Unable to Assess Medications and Allergies Active Medications: Active Medications Acetaminophen (Tylenol) 650 mg PO Q4H PRN PRN Reason: Temp > 100.4 Al Hydroxide/Mg Hydroxide (Milk Of Magnparnav Liq) 30 ml PO Q12H PRN PRN Reason: Mild Constipation Albuterol (Ventolin Hfa Inh) 2 puff INH Q4H PRN PRN Reason: SHORTNESS OF BREATH/WHEEZING Albuterol (Albuterol Neb (Prn)) 2.5 mg NEB Q2HR NEB PRN PRN Reason: SHORTNESS OF BREATH Last Admin: 11/26/17 00:18 Dose: 2.5 mg Albuterol (Duoneb Neb (Barney)) 1 ampul NEB Q6HR NEB BARNEY Last Admin: 11/26/17 03:19 Dose: 1 ampul Bisacodyl (Dulcolax Supp) 10 mg RECTAL DAILY PRN PRN Reason: SEVERE CONSITIPATION Furosemide (Lasix) 20 mg PO DAILY BARNEY Last Admin: 11/25/17 16:39 Dose: 20 mg Furosemide (Lasix Inj) 40 mg IV.PUSH DAILY BARNEY Last Admin: 11/25/17 19:56 Dose: 40 mg Azithromycin 500 mg/ Sodium (Chloride) 250 mls @ 250 mls/hr IV.SIG Q24H BARNEY Last Infusion: 11/26/17 00:46 Dose: Infused Lactated Ringer's (Lr 1000 Ml Inj) 1,000 mls @ 130 mls/hr IV.CONT .Q7H42M BARNEY Last Admin: 11/26/17 03:02 Dose: 130 mls/hr Piperacillin/Tazobactam/Dextrose (Zosyn 2.25 Gm Premix) 50 mls @ 100 mls/hr IV.SIG Q8HR BARNEY Last Admin: 11/26/17 07:03 Dose: 100 mls/hr Sodium Bicarbonate 150 meq/Potassium Chloride 20 meq/Sodium Chloride 1,000 mls @ 100 mls/hr IV.CONT .Q10H BARNEY Last Admin: 11/26/17 07:01 Dose: Not Given Sodium Bicarbonate 150 meq/ (Dextrose) 1,000 mls @ 150 mls/hr IV.CONT .Q6H40M BARNEY Last Admin: 11/26/17 07:02 Dose: 150 mls/hr Lactulose (Lactulose Liq) 30 ml PO DAILY PRN PRN Reason: SEVERE CONSITIPATION Ondansetron HCl (Zofran Inj) 4 mg IV.PUSH Q6H PRN PRN Reason: NAUSEA OR VOMITING Sennosides (Senokot) 17.2 mg PO Q12H PRN PRN Reason: Moderate Constipation Sodium Chloride (Ns Flush) 2 ml IV.FLUSH PRN PRN PRN Reason: FLUSH AFTER USING IV ACCESS Sodium Chloride (Ns Flush) 2 ml IV.FLUSH BID [facility] Last Admin: 11/25/17 22:22 Dose: 2 ml Allergies Allergy/AdvReac Type Severity Reaction Status Date / Time No Known Allergies Allergy Unverified 11/25/17 11:48 Home Medications Medication Instructions Recorded Confirmed Type acetaminophen-codeine 1 tab PO Q6-8H PRN 11/25/17 11/25/17 History [Tylenol-Codeine #3] furosemide [Lasix] 20 mg PO DAILY 11/25/17 11/25/17 History tramadol 50 mg PO BID PRN 11/25/17 11/25/17 History Physical Exam Vital signs: Vital Signs 11/25/17 11:34 11/25/17 11:49 11/25/17 11:51 Temperature 98.5 F Pulse Rate 71 71 70 Respiratory Rate 30 H 30 H Blood Pressure 89/50 L 96/53 L Pulse Oximetry 92 L 92 L 90 L 11/25/17 12:51 11/25/17 13:00 11/25/17 14:00 Temperature Pulse Rate 68 68 80 Respiratory Rate 25 H 25 H 22 Blood Pressure 87/54 L 90/53 L 106/54 L Pulse Oximetry 95 93 L 95 11/25/17 15:00 11/25/17 15:56 11/25/17 17:36 Temperature 98.2 F Pulse Rate 80 80 70 Respiratory Rate 20 20 20 Blood Pressure 106/54 L 109/53 L 97/52 L Pulse Oximetry 96 95 94 L 11/25/17 19:58 11/25/17 20:00 11/25/17 20:05 Temperature Pulse Rate 72 Respiratory Rate 21 Blood Pressure Pulse Oximetry 92 L 94 L 11/25/17 23:14 11/25/17 23:28 11/25/17 23:30 Temperature 97.9 F Pulse Rate 69 73 Respiratory Rate 19 32 H Blood Pressure 101/55 L Pulse Oximetry 94 L 93 L 94 L 11/25/17 23:41 11/26/17 00:00 11/26/17 00:44 Temperature 98.7 F Pulse Rate 70 101 H Respiratory Rate 32 H 29 H 32 H Blood Pressure 142/65 H Pulse Oximetry 94 L 11/26/17 00:50 11/26/17 03:21 11/26/17 03:54 Temperature 98.9 F Pulse Rate 68 68 Respiratory Rate 21 24 29 H Blood Pressure 122/68 Pulse Oximetry 94 L 95 Intake & Output 11/25/17 11/26/17 11/26/17 18:59 06:59 18:59 Intake Total 600 / 600 Output Total 200 / 200 Balance 400 / 400 Weight 90.718 kg 111.7 kg Intake: IV 500 / 500 Ofirmev Inj 1,000 mg In 100 ml 200 / 200 @ 400 mls/hr IV.SIG ONCE ONE Rx #:[id number] Azithromycin Inj 500 MG In NS 250 / 250 Inj 250 ML @ 250 mls/hr IV.SIG Q24H BARNEY Rx#:[id number] Zosyn 2.25 GM Premix 50 ML @ 50 / 50 100 mls/hr IV.SIG Q6H BARNEY Rx#: [id number] Oral 100 / 100 Output: Urine 200 / 200 Other: # Voids 2 Date of Last Bowel Movement 11/25/17 11/25/17 # Bowel Movements 3 Narrative: - Constitutional Moderate distress, waxing and waning level of consciousness - Routine HEENT Exam Head: Normocephalic ENT: Mucous membranes are dry - Routine Neck Exam supple. - Routine Respiratory Exam Air entry equal bilaterally anteriorly. Few crackles at the bases. No wheezes - Routine Cardiovascular Exam RRR, S1, S2 - Routine Abdominal Exam Abdomen is soft mild diffuse tenderness in the epigastric region - Routine Extremities Exam No cyanosis, clubbing, edema, - Routine Neurological Exam Patient has waxing and waning level of consciousness. Intermittently oriented to person and place not to time. Able to move all 4 extremities Septic Shock Reassessment Septic shock perfusion: reassessment completed Assessment and Plan - Assessment and Plan Plan: ASSESSMENT: Toxic metabolic encephalopathy/Delirium Severe metabolic acidosis/severe lactic acidosis Suspected ischemic bowel Acute kidney failure Bilateral multilobar pneumonia Severe sepsis Respiratory insufficiency Suspected opiate overdose Chronic systolic heart failure PLAN: NEURO: -Minimize sedation -Morphine for breakthrough pain watching neuro status closely -DNI RESP: -At this time patient has inadequately compensated severe metabolic acidosis. -I recommended endotracheal intubation and supportive care if aggressive care was decided but reiterated patient's previous wishes -DNR/DNI -DuoNeb every 6 hours scheduled and as needed -Continue Zosyn and azithromycin for severe pneumonia -Sputum culture if available CV: -Normal saline IV fluids 1L bolus and, continue bicarb infusion at 150 mL/h -Per patient has an ejection fraction of 35% -DC IV Lasix due to worsening renal failure and severe dehydration GI: -Suspected ischemic bowel. Patient has abdominal pain diarrhea and lactic acidosis of 12.1 -N.p.o., IV famotidine -Unable to do a CT angiogram due to creatinine of 3.4 -We will request GI/general surgery evaluation only if agrees for aggressive care : -Monitor renal function closely. Simons catheter. -Creatinine is 3.4 today on presentation was 1.77 -Severe metabolic acidosis doses secondary to combination of probable ischemic bowel, severe sepsis, and renal failure -Nephrology consulted however may choose to go hospice ID: -Antibiotics with Zosyn and azithromycin -Blood urine and sputum cultures HEME: -Monitor CBC, coags ENDO: -Electrolyte replacement per protocol cannot be used to due to renal failure -Sliding scale insulin if needed PROPH: -Bilateral lower extremity SCDs. Lovenox/famotidine LINES: -Utilize peripheral IVs, central line if needed CC time 45 min Patient is very critical, with severe uncompensated metabolic acidosis from suspected ischemic bowel, severe sepsis and worsening renal failure. Ideally she will require endotracheal intubation for supportive care, and hemodialysis to correct acidosis. However I discussed with the he is very clear about her previous wishes. She had been suffering from chronic pain for several years and did not want to be support with machines. I recommended hospice because of the limited care we can provide without intubation or hemodialysis. He is willing to transition to hospice. I have communicated with family practice service and hospice plan been consulted Code Status: DNR/DNI Discussed Condition With: FP team and
[2017-11-26] MEDS ORDERED: Morphine Sulfate Inj 2 MG/ML Vial ONE (08:26)
[2017-11-26 08:35] LABS: CKMB Percent 2.2 % (0.0-4.0)
[2017-11-26 08:44] VITALS: RESP 23
[2017-11-26] MEDS ORDERED: Sod Chloride 0.9% Inj 1,000 ML IV.SIG ONE (09:00)
[2017-11-26] MEDS ORDERED: Morphine Inj 4 MG/ML Vial ONE (09:18)
[2017-11-26] MEDS: Morphine Sulfate Inj 2 MG/ML Vial IV.PUSH PRN ×2 (11:47→15:26)
[2017-11-26 12:19] VITALS: O2SAT 97
[2017-11-26] MEDS: Morphine Inj 4 MG/ML Vial IV.PUSH PRN ×2 (12:24→14:00)
[2017-11-26 12:39] VITALS: BP 93/68; PULSE 70; TEMP 97
--- NOTE | 2017-11-26 13:55 | P.CONNP ---
<Ginny Thomson - Last Filed: 11/26/17 13:38> History of Present Illness Service: Nephrology Consult date: 11/26/17 Reason for Consult: Acute Renal Failure Primary Care Provider: UNKNOWN Chief Complaint: AMS History of Present Illness: This is a 77 y/o female who was admitted after being found unresponsive in her car. She was given Narcan and did respond per the records, there was concern for opiate overdose. We have no old labs in the system for comparison. She is in renal failure on arrival, creatinine 1.77 increased to 2.68 and again to 3.4. She also coto severe metabolic acidosis with CO2 dropping and is 14.6 at last check. Her lactic acid is also significantly elevated. Imaging shows diverticulosis without acute infection. There is concern for ischemic bowel. She was hypotensive on arrival, labs also showing hypernatremia, and she is on a bicarb gtt currently. The patient is lethargic, moaning, and unable to provide any information. Her has requested hospice evaluation, and after personally discussing her case with him, he has made it clear he does want her to be transitioned to comfort measures and does not want aggressive interventions. She is not making much urine. Review of Systems unobtainable due to mental condition, unobtainable due to mental status PMFSH - History History Provided By: Family Member - Medical / Surgical Hx Neg / Unobtainable Medical Problems Denied: Unable to Obtain Surgical History: Unable to Obtain - Medical History Medical History: Medical History (Last Reviewed 11/26/17 @ 07:56 by Jess Sabillon) CHF (congestive heart failure) Hx of hysterectomy Pacemaker - Surgical History Surgical History: Surgical History (Last Reviewed 11/26/17 @ 07:56 by Jess Sabillon) History of total left knee replacement (TKR) Hx of appendectomy Hx of cardiac catheterization Hx of cholecystectomy - Tobacco History Smoking Status: Former smoker Tobacco Type: Cigarettes - Alcohol History How Often Do You Have a Drink Containing Alcohol: Never - Substance Use History Substance History: No History of Abuse - Travel History Recent Travel in the [facility] Within the Last 8 Weeks: No Recent Travel Out of the Country Within the Last 8 Weeks: No - Immunization History Tetanus Immunization: Unsure Hx Influenza Vaccine This Season: Unable to Assess Medications and Allergies Allergies Allergy/AdvReac Type Severity Reaction Status Date / Time No Known Allergies Allergy Unverified 11/25/17 11:48 Home Medications Medication Instructions Recorded Confirmed Type acetaminophen-codeine 1 tab PO Q6-8H PRN 11/25/17 11/25/17 History [Tylenol-Codeine #3] furosemide [Lasix] 20 mg PO DAILY 11/25/17 11/25/17 History tramadol 50 mg PO BID PRN 11/25/17 11/25/17 History Active Medications: Active Medications Al Hydroxide/Mg Hydroxide (Milk Of Magnesia Liq) 30 ml PO Q12H PRN PRN Reason: Mild Constipation Albuterol (Ventolin Hfa Inh) 2 puff INH Q4H PRN PRN Reason: SHORTNESS OF BREATH/WHEEZING Albuterol (Albuterol Neb (Prn)) 2.5 mg NEB Q2HR NEB PRN PRN Reason: SHORTNESS OF BREATH Last Admin: 11/26/17 00:18 Dose: 2.5 mg Albuterol (Duoneb Neb (Barney)) 1 ampul NEB Q6HR NEB BARNEY Last Admin: 11/26/17 09:16 Dose: Not Given Bisacodyl (Dulcolax Supp) 10 mg RECTAL DAILY PRN PRN Reason: SEVERE CONSITIPATION Azithromycin 500 mg/ Sodium (Chloride) 250 mls @ 250 mls/hr IV.SIG Q24H BARNEY Last Infusion: 11/26/17 00:46 Dose: Infused Lactated Ringer's (Lr 1000 Ml Inj) 1,000 mls @ 130 mls/hr IV.CONT .Q7H42M BARNEY Last Admin: 11/26/17 03:02 Dose: 130 mls/hr Piperacillin/Tazobactam/Dextrose (Zosyn 2.25 Gm Premix) 50 mls @ 100 mls/hr IV.SIG Q8HR BARNEY Last Infusion: 11/26/17 10:43 Dose: Infused Sodium Bicarbonate 150 meq/ (Dextrose) 1,000 mls @ 50 mls/hr IV.CONT .Q20H BARNEY Last Admin: 11/26/17 10:44 Dose: 50 mls/hr Lactulose (Lactulose Liq) 30 ml PO DAILY PRN PRN Reason: SEVERE CONSITIPATION Lorazepam (Ativan Inj) 1 mg IV.PUSH Q2H PRN PRN Reason: AGITATION Last Admin: 11/26/17 10:16 Dose: 1 mg Morphine Sulfate (Morphine Inj) 2 mg IV.PUSH Q3H PRN PRN Reason: PAIN SCALE 6 TO 10 Last Admin: 11/26/17 11:47 Dose: 2 mg Morphine Sulfate (Morphine Inj) 4 mg IV.PUSH Q2H PRN PRN Reason: BREAKTHROUGH PAIN Last Admin: 11/26/17 12:24 Dose: 4 mg Ondansetron HCl (Zofran Inj) 4 mg IV.PUSH Q6H PRN PRN Reason: NAUSEA OR VOMITING Sennosides (Senokot) 17.2 mg PO Q12H PRN PRN Reason: Moderate Constipation Sodium Chloride (Ns Flush) 2 ml IV.FLUSH PRN PRN PRN Reason: FLUSH AFTER USING IV ACCESS Sodium Chloride (Ns Flush) 2 ml IV.FLUSH BID BARNEY Last Admin: 11/26/17 08:44 Dose: 2 ml Exam Vital signs: Vital Signs 11/25/17 14:00 11/25/17 15:00 11/25/17 15:56 Temperature Pulse Rate 80 80 80 Respiratory Rate 22 20 20 Blood Pressure 106/54 L 106/54 L 109/53 L Pulse Oximetry 95 96 95 11/25/17 17:36 11/25/17 19:58 11/25/17 20:00 Temperature 98.2 F Pulse Rate 70 72 Respiratory Rate 20 21 Blood Pressure 97/52 L Pulse Oximetry 94 L 92 L 11/25/17 20:05 11/25/17 23:14 11/25/17 23:28 Temperature 97.9 F Pulse Rate 69 73 Respiratory Rate 19 32 H Blood Pressure 101/55 L Pulse Oximetry 94 L 94 L 93 L 11/25/17 23:30 11/25/17 23:41 11/26/17 00:00 Temperature 98.7 F Pulse Rate 70 101 H Respiratory Rate 32 H 29 H Blood Pressure 142/65 H Pulse Oximetry 94 L 94 L 11/26/17 00:44 11/26/17 00:50 11/26/17 03:21 Temperature 98.9 F Pulse Rate 68 68 Respiratory Rate 32 H 21 24 Blood Pressure 122/68 Pulse Oximetry 94 L 95 11/26/17 03:54 11/26/17 07:00 11/26/17 08:00 Temperature Pulse Rate 72 72 Respiratory Rate 29 H 24 Blood Pressure 125/60 Pulse Oximetry 100 100 11/26/17 08:18 11/26/17 08:44 11/26/17 08:45 Temperature Pulse Rate Respiratory Rate 23 23 Blood Pressure Pulse Oximetry 100 11/26/17 11:00 11/26/17 11:50 11/26/17 12:19 Temperature 97 F L Pulse Rate 70 Respiratory Rate 24 23 Blood Pressure 93/68 L Pulse Oximetry 97 97 Intake & Output 11/25/17 11/26/17 11/26/17 18:59 06:59 18:59 Intake Total 600 / 600 150 / 150 Output Total 200 / 200 Balance 400 / 400 150 / 150 Weight 90.718 kg 111.7 kg Intake: IV 500 / 500 150 / 150 Ofirmev Inj 1,000 mg In 100 ml 200 / 200 100 / 100 @ 400 mls/hr IV.SIG ONCE ONE Rx #:[id number] Azithromycin Inj 500 MG In NS 250 / 250 Inj 250 ML @ 250 mls/hr IV.SIG Q24H BARNEY Rx#:[id number] Zosyn 2.25 GM Premix 50 ML @ 50 / 50 50 / 50 100 mls/hr IV.SIG Q8HR BARNEY Rx#: [id number] Oral 100 / 100 0 / 0 Output: Urine 200 / 200 Other: # Voids 2 1 Date of Last Bowel Movement 11/25/17 11/25/17 11/25/17 # Bowel Movements 3 0 - Constitutional moderate distress, chronically ill appearing Comments: elderly, eyes closed, moaning, withdrawal to pain audible rales on exam, no wheezing - Routine HEENT Exam Head: Present: normocephalic ENT: Present: mucous membranes dry - Routine Neck Exam Present: supple, full ROM. Absent: JVD - Routine Respiratory Exam Present: rales, respiratory distress. Absent: rhonchi - Routine Cardiovascular Exam Present: RRR, S1, S2 - Routine Abdominal Exam Present: soft, normoactive bowel sounds. Absent: guarding - Routine Extremities Exam Present: pulses intact. Absent: edema - Routine Skin Exam Present: intact, dry, warm - Routine Neurological Exam Present: altered mental status awake, rocking back and forth, moaning, moans when name is called but unable to speak or answer questions. Results - Lab Results 11/26/17 06:08 11/26/17 06:08 Most recent lab results ABG pH 7.10 (7.380-7.420) L* 11/26/17 07:25 ABG pCO2 35 mmHg (38-42) L 11/26/17 07:25 ABG pO2 117 mmHg (61-120) 11/26/17 07:25 ABG HCO3 10 mmol/L (22-26) L* 11/26/17 07:25 Calcium 8.2 mg/dL (8.5-10.1) L 11/26/17 06:08 Assessment and Plan - Assessment (1) STORMY (acute kidney injury) Code(s): N17.9 - Acute kidney failure, unspecified Status: Acute Plan: No baseline labs for comparison STORMY most likely due to ATN from hypotension; also may be due to infection She has declining renal function, decreasing urine output Significant metabolic acidosis, see below continue Bicarb gtt, changed to D5W with 3 amps at 100 ml/hr due to hypernatremia Stop LR She may need HD if no improvement. D/W ,he has requested no intervention and transition to hospice services In the meantime avoid nephrotoxic agents. Follow labs (2) Lactic acidosis Code(s): E87.2 - Acidosis Status: Acute Plan: Possible ischemic bowel. Bicarb gtt continues. On Zosyn (3) Metabolic acidosis Code(s): E87.2 - Acidosis Status: Acute Plan: High anion gap metabolic acidosis Due to renal failure and lactic acidosis Bicarb gtt as above. (4) Altered mental status Code(s): R41.82 - Altered mental status, unspecified Status: Acute Plan: Multifactorial, continue supportive care (5) Respiratory distress Code(s): R06.03 - Acute respiratory distress Status: Acute Plan: Monitor fluid and respiratory status declined intubation Oxygen as needed - Plan The has elected hospice services. We will sign off at this time. Call us if any changes. <Ramin Garcias - Last Filed: 11/26/17 17:47> History of Present Illness Primary Care Provider: UNKNOWN [facility] - Medical History Medical History: Medical History (Last Reviewed 11/26/17 @ 07:56 by Jess Sabillon) CHF (congestive heart failure) Hx of hysterectomy Pacemaker - Surgical History Surgical History: Surgical History (Last Reviewed 11/26/17 @ 07:56 by Jess Sabillon) History of total left knee replacement (TKR) Hx of appendectomy Hx of cardiac catheterization Hx of cholecystectomy Medications and Allergies Active Medications: Active Medications Al Hydroxide/Mg Hydroxide (Milk Of Magnesia Liq) 30 ml PO Q12H PRN PRN Reason: Mild Constipation Albuterol (Albuterol Neb (Prn)) 2.5 mg NEB Q2HR NEB PRN PRN Reason: SHORTNESS OF BREATH Last Admin: 11/26/17 00:18 Dose: 2.5 mg Albuterol (Duoneb Neb (Barney)) 1 ampul NEB Q6HR NEB BARNEY Last Admin: 11/26/17 16:28 Dose: Not Given Bisacodyl (Dulcolax Supp) 10 mg RECTAL DAILY PRN PRN Reason: SEVERE CONSITIPATION Sodium Bicarbonate 150 meq/ (Dextrose) 1,000 mls @ 100 mls/hr IV.CONT .Q10H BARNEY Last Admin: 11/26/17 10:44 Dose: 50 mls/hr Lactulose (Lactulose Liq) 30 ml PO DAILY PRN PRN Reason: SEVERE CONSITIPATION Lorazepam (Ativan Inj) 1 mg IV.PUSH Q2H PRN PRN Reason: AGITATION Last Admin: 11/26/17 10:16 Dose: 1 mg Morphine Sulfate (Morphine Inj) 2 mg IV.PUSH Q3H PRN PRN Reason: PAIN SCALE 6 TO 10 Last Admin: 11/26/17 15:26 Dose: 2 mg Morphine Sulfate (Morphine Inj) 4 mg IV.PUSH Q2H PRN PRN Reason: BREAKTHROUGH PAIN Last Admin: 11/26/17 14:00 Dose: 4 mg Ondansetron HCl (Zofran Inj) 4 mg IV.PUSH Q6H PRN PRN Reason: NAUSEA OR VOMITING Sennosides (Senokot) 17.2 mg PO Q12H PRN PRN Reason: Moderate Constipation Sodium Chloride (Ns Flush) 2 ml IV.FLUSH PRN PRN PRN Reason: FLUSH AFTER USING IV ACCESS Sodium Chloride (Ns Flush) 2 ml IV.FLUSH BID BARNEY Last Admin: 11/26/17 08:44 Dose: 2 ml Exam Vital signs: Vital Signs 11/25/17 19:58 11/25/17 20:00 11/25/17 20:05 Temperature Pulse Rate 72 Respiratory Rate 21 Blood Pressure Pulse Oximetry 92 L 94 L 11/25/17 23:14 11/25/17 23:28 11/25/17 23:30 Temperature 97.9 F Pulse Rate 69 73 Respiratory Rate 19 32 H Blood Pressure 101/55 L Pulse Oximetry 94 L 93 L 94 L 11/25/17 23:41 11/26/17 00:00 11/26/17 00:44 Temperature 98.7 F Pulse Rate 70 101 H Respiratory Rate 32 H 29 H 32 H Blood Pressure 142/65 H Pulse Oximetry 94 L 11/26/17 00:50 11/26/17 03:21 11/26/17 03:54 Temperature 98.9 F Pulse Rate 68 68 Respiratory Rate 21 24 29 H Blood Pressure 122/68 Pulse Oximetry 94 L 95 11/26/17 07:00 11/26/17 08:00 11/26/17 08:18 Temperature Pulse Rate 72 72 Respiratory Rate 24 Blood Pressure 125/60 Pulse Oximetry 100 100 100 11/26/17 08:44 11/26/17 08:45 11/26/17 11:00 Temperature 97 F L Pulse Rate 70 Respiratory Rate 23 23 24 Blood Pressure 93/68 L Pulse Oximetry 97 11/26/17 11:50 11/26/17 12:19 Temperature Pulse Rate Respiratory Rate 23 Blood Pressure Pulse Oximetry 97 Intake & Output 11/25/17 11/26/17 11/26/17 18:59 06:59 18:59 Intake Total 600 / 600 150 / 150 Output Total 200 / 200 Balance 400 / 400 150 / 150 Weight 90.718 kg 111.7 kg Intake: IV 500 / 500 150 / 150 Ofirmev Inj 1,000 mg In 100 ml 200 / 200 100 / 100 @ 400 mls/hr IV.SIG ONCE ONE Rx #:[id number] Azithromycin Inj 500 MG In NS 250 / 250 Inj 250 ML @ 250 mls/hr IV.SIG Q24H BARNEY Rx#:[id number] Zosyn 2.25 GM Premix 50 ML @ 50 / 50 50 / 50 100 mls/hr IV.SIG Q8HR BARNEY Rx#: [id number] Oral 100 / 100 0 / 0 Output: Urine 200 / 200 Other: # Voids 2 1 Date of Last Bowel Movement 11/25/17 11/25/17 11/25/17 # Bowel Movements 3 0 Results - Lab Results 11/26/17 06:08 08/08/18 06:08 Most recent lab results ABG pH 7.10 (7.380-7.420) L* 11/26/17 07:25 ABG pCO2 35 mmHg (38-42) L 11/26/17 07:25 ABG pO2 117 mmHg (61-120) 11/26/17 07:25 ABG HCO3 10 mmol/L (22-26) L* 11/26/17 07:25 Calcium 8.2 mg/dL (8.5-10.1) L 11/26/17 06:08 Assessment and Plan - Assessment (1) STORMY (acute kidney injury) Code(s): N17.9 - Acute kidney failure, unspecified Status: Acute (2) Lactic acidosis Code(s): E87.2 - Acidosis Status: Acute (3) Metabolic acidosis Code(s): E87.2 - Acidosis Status: Acute (4) Altered mental status Code(s): R41.82 - Altered mental status, unspecified Status: Acute (5) Respiratory distress Code(s): R06.03 - Acute respiratory distress Status: Acute - Attending Attestation patient was seen and examined. Agree with above assessment and plan. has decided to seek hospice services. I discussed with Dr. Scales.
--- NOTE | 2017-11-26 15:35 | P.PNFP ---
Subjective Interval history: Patient seen and examined in the morning bedside with the medicine team. The patient is refusing to answer any questions about where her pain is how she has been doing overnight. He continues to yell at us and tell us to go away. She refuses the physical exam. She states that she is in pain. She also states that she is dying. <Claudine Lassiter - 11/26/17 15:34> Results - Labs Result diagrams: 11/26/17 06:08 11/26/17 06:08 <Logan Roman - 11/28/17 07:28> Abnormal lab results 11/25/17 11/25/17 11/25/17 Range/Units 12:00 14:00 16:39 MCH (27.0-34.0) pg MCHC (32.0-36.0) % RDW (11.6-17.2) % Neut % (Auto) (16.0-70.0) % Lymph % (Auto) (9.0-44.0) % Lymph # (Auto) (1.0-4.8) th/mm3 Band Neuts % (Manual) (0-6) % Lymphocytes % (Manual) (9-44) % Myelocytes % (Man) (0-0) % Abs Neuts (Manual) (1.8-7.7) th/mm3 Nucleated RBCs/100 WBC (0-0) /100 WBC Ovalocytes (None) PT (9.8-11.6) sec ABG pH (7.380-7.420) ABG pCO2 (38-42) mmHg ABG HCO3 (22-26) mmol/L ABG Base Excess (-2-2) mmol/L ABG Methemoglobin (0-2) % Hemoglobin (12.0-16.0) G/DL Sodium (136-145) meq/L Chloride (98-107) meq/L Carbon Dioxide (21.0-32.0) meq/L Anion Gap (5-15) meq/L BUN (7-18) mg/dL Creatinine (0.50-1.00) mg/dL Estimated GFR (>89) mL/min Random Glucose (74-106) mg/dL Osmolality (275-295) mosm/kg Lactic Acid (0.4-2.0) mmol/L Calcium (8.5-10.1) mg/dL AST (15-37) U/L ALT (10-53) U/L Alkaline Phosphatase (45-117) U/L Ammonia (11-32) mcmol/L Total Creatine Kinase 792 H (26-192) U/L CK-MB (CK-2) 19.8 H (0.5-3.6) ng/mL Troponin I 0.12 H (0.02-0.05) ng/mL B-Natriuretic Peptide (0-100) pg/mL Total Protein (6.4-8.2) g/dL Albumin (3.4-5.0) g/dL Procalcitonin (0.00-0.08) ng/mL Urine Clarity Cloudy H (Clear) Urine Protein 30 H (Neg-Trace) mg/dL Urine Urobilinogen 2.0 H (Less than 2) mg/dL Ur Leukocyte Esterase Trace H (Negative) Urine RBC 5 H (0-3) /hpf Urine WBC 7 H (0-5) /hpf Amorphous Sediment Rare H (None) /hpf Urine Bacteria Few H (None) /hpf Urine Mucus Few H (Occasional) /lpf Salicylates 1.9 L (2.8-20.0) mg/dL Acetaminophen (10.0-30.0) mcg/mL 11/25/17 11/25/17 11/25/17 Range/Units 18:01 18:05 20:26 MCH (27.0-34.0) pg MCHC (32.0-36.0) % RDW (11.6-17.2) % Neut % (Auto) (16.0-70.0) % Lymph % (Auto) (9.0-44.0) % Lymph # (Auto) (1.0-4.8) th/mm3 Band Neuts % (Manual) (0-6) % Lymphocytes % (Manual) (9-44) % Myelocytes % (Man) (0-0) % Abs Neuts (Manual) (1.8-7.7) th/mm3 Nucleated RBCs/100 WBC (0-0) /100 WBC Ovalocytes (None) PT (9.8-11.6) sec ABG pH 7.17 L* (7.380-7.420) ABG pCO2 47 H (38-42) mmHg ABG HCO3 17 L (22-26) mmol/L ABG Base Excess -10.4 L (-2-2) mmol/L ABG Methemoglobin (0-2) % Hemoglobin (12.0-16.0) G/DL Sodium (136-145) meq/L Chloride (98-107) meq/L Carbon Dioxide (21.0-32.0) meq/L Anion Gap (5-15) meq/L BUN (7-18) mg/dL Creatinine (0.50-1.00) mg/dL Estimated GFR (>89) mL/min Random Glucose (74-106) mg/dL Osmolality (275-295) mosm/kg Lactic Acid (0.4-2.0) mmol/L Calcium (8.5-10.1) mg/dL AST (15-37) U/L ALT (10-53) U/L Alkaline Phosphatase (45-117) U/L Ammonia (11-32) mcmol/L Total Creatine Kinase (26-192) U/L CK-MB (CK-2) (0.5-3.6) ng/mL Troponin I (0.02-0.05) ng/mL B-Natriuretic Peptide 502 H (0-100) pg/mL Total Protein (6.4-8.2) g/dL Albumin (3.4-5.0) g/dL Procalcitonin 29.66 H (0.00-0.08) ng/mL Urine Clarity (Clear) Urine Protein (Neg-Trace) mg/dL Urine Urobilinogen (Less than 2) mg/dL Ur Leukocyte Esterase (Negative) Urine RBC (0-3) /hpf Urine WBC (0-5) /hpf Amorphous Sediment (None) /hpf Urine Bacteria (None) /hpf Urine Mucus (Occasional) /lpf Salicylates (2.8-20.0) mg/dL Acetaminophen (10.0-30.0) mcg/mL 11/25/17 11/25/17 11/26/17 Range/Units 21:05 21:22 00:28 MCH (27.0-34.0) pg MCHC (32.0-36.0) % RDW (11.6-17.2) % Neut % (Auto) (16.0-70.0) % Lymph % (Auto) (9.0-44.0) % Lymph # (Auto) (1.0-4.8) th/mm3 Band Neuts % (Manual) (0-6) % Lymphocytes % (Manual) (9-44) % Myelocytes % (Man) (0-0) % Abs Neuts (Manual) (1.8-7.7) th/mm3 Nucleated RBCs/100 WBC (0-0) /100 WBC Ovalocytes (None) PT (9.8-11.6) sec ABG pH 7.15 L* 7.12 L* (7.380-7.420) ABG pCO2 44 H (38-42) mmHg ABG HCO3 15 L* 12 L* (22-26) mmol/L ABG Base Excess -12.5 L -15.4 L (-2-2) mmol/L ABG Methemoglobin 2.1 H (0-2) % Hemoglobin 11.9 L 11.2 L (12.0-16.0) G/DL Sodium (136-145) meq/L Chloride 110 H (98-107) meq/L Carbon Dioxide 17.4 L (21.0-32.0) meq/L Anion Gap 16 H (5-15) meq/L BUN 33 H (7-18) mg/dL Creatinine 2.68 H (0.50-1.00) mg/dL Estimated GFR 17 L (>89) mL/min Random Glucose (74-106) mg/dL Osmolality (275-295) mosm/kg Lactic Acid (0.4-2.0) mmol/L Calcium (8.5-10.1) mg/dL AST 108 H (15-37) U/L ALT (10-53) U/L Alkaline Phosphatase 128 H (45-117) U/L Ammonia (11-32) mcmol/L Total Creatine Kinase 1024 H (26-192) U/L CK-MB (CK-2) 28.0 H (0.5-3.6) ng/mL Troponin I 0.17 H (0.02-0.05) ng/mL B-Natriuretic Peptide (0-100) pg/mL Total Protein (6.4-8.2) g/dL Albumin 3.1 L (3.4-5.0) g/dL Procalcitonin (0.00-0.08) ng/mL Urine Clarity (Clear) Urine Protein (Neg-Trace) mg/dL Urine Urobilinogen (Less than 2) mg/dL Ur Leukocyte Esterase (Negative) Urine RBC (0-3) /hpf Urine WBC (0-5) /hpf Amorphous Sediment (None) /hpf Urine Bacteria (None) /hpf Urine Mucus (Occasional) /lpf Salicylates (2.8-20.0) mg/dL Acetaminophen (10.0-30.0) mcg/mL 11/26/17 11/26/17 11/26/17 Range/Units 03:27 05:14 06:08 MCH 26.8 L (27.0-34.0) pg MCHC 30.5 L (32.0-36.0) % RDW 17.7 H (11.6-17.2) % Neut % (Auto) 85.8 H (16.0-70.0) % Lymph % (Auto) 4.8 L (9.0-44.0) % Lymph # (Auto) 0.4 L (1.0-4.8) th/mm3 Band Neuts % (Manual) 45 H (0-6) % Lymphocytes % (Manual) 5 L (9-44) % Myelocytes % (Man) 2 H (0-0) % Abs Neuts (Manual) 8.1 H (1.8-7.7) th/mm3 Nucleated RBCs/100 WBC 1 H (0-0) /100 WBC Ovalocytes 1+ H (None) PT 27.2 H D (9.8-11.6) sec ABG pH 7.11 L* (7.380-7.420) ABG pCO2 35 L (38-42) mmHg ABG HCO3 11 L* (22-26) mmol/L ABG Base Excess -17.1 L (-2-2) mmol/L ABG Methemoglobin (0-2) % Hemoglobin (12.0-16.0) G/DL Sodium (136-145) meq/L Chloride (98-107) meq/L Carbon Dioxide (21.0-32.0) meq/L Anion Gap (5-15) meq/L BUN (7-18) mg/dL Creatinine (0.50-1.00) mg/dL Estimated GFR (>89) mL/min Random Glucose (74-106) mg/dL Osmolality (275-295) mosm/kg Lactic Acid (0.4-2.0) mmol/L Calcium (8.5-10.1) mg/dL AST (15-37) U/L ALT (10-53) U/L Alkaline Phosphatase (45-117) U/L Ammonia (11-32) mcmol/L Total Creatine Kinase (26-192) U/L CK-MB (CK-2) (0.5-3.6) ng/mL Troponin I (0.02-0.05) ng/mL B-Natriuretic Peptide (0-100) pg/mL Total Protein (6.4-8.2) g/dL Albumin (3.4-5.0) g/dL Procalcitonin (0.00-0.08) ng/mL Urine Clarity (Clear) Urine Protein (Neg-Trace) mg/dL Urine Urobilinogen (Less than 2) mg/dL Ur Leukocyte Esterase (Negative) Urine RBC (0-3) /hpf Urine WBC (0-5) /hpf Amorphous Sediment (None) /hpf Urine Bacteria (None) /hpf Urine Mucus (Occasional) /lpf Salicylates (2.8-20.0) mg/dL Acetaminophen (10.0-30.0) mcg/mL 11/26/17 11/26/17 11/26/17 Range/Units 06:08 06:08 06:08 MCH (27.0-34.0) pg MCHC (32.0-36.0) % RDW (11.6-17.2) % Neut % (Auto) (16.0-70.0) % Lymph % (Auto) (9.0-44.0) % Lymph # (Auto) (1.0-4.8) th/mm3 Band Neuts % (Manual) (0-6) % Lymphocytes % (Manual) (9-44) % Myelocytes % (Man) (0-0) % Abs Neuts (Manual) (1.8-7.7) th/mm3 Nucleated RBCs/100 WBC (0-0) /100 WBC Ovalocytes (None) PT (9.8-11.6) sec ABG pH (7.380-7.420) ABG pCO2 (38-42) mmHg ABG HCO3 (22-26) mmol/L ABG Base Excess (-2-2) mmol/L ABG Methemoglobin (0-2) % Hemoglobin (12.0-16.0) G/DL Sodium 146 H (136-145) meq/L Chloride 109 H (98-107) meq/L Carbon Dioxide 14.6 L (21.0-32.0) meq/L Anion Gap 22 H (5-15) meq/L BUN 39 H (7-18) mg/dL Creatinine 3.40 H (0.50-1.00) mg/dL Estimated GFR 13 L (>89) mL/min Random Glucose 115 H (74-106) mg/dL Osmolality 319 H (275-295) mosm/kg Lactic Acid (0.4-2.0) mmol/L Calcium 8.2 L (8.5-10.1) mg/dL AST 255 H (15-37) U/L ALT 81 H (10-53) U/L Alkaline Phosphatase (45-117) U/L Ammonia (11-32) mcmol/L Total Creatine Kinase 1823 H (26-192) U/L CK-MB (CK-2) 41.0 H (0.5-3.6) ng/mL Troponin I (0.02-0.05) ng/mL B-Natriuretic Peptide 1026 H (0-100) pg/mL Total Protein 5.9 L D (6.4-8.2) g/dL Albumin 2.6 L (3.4-5.0) g/dL Procalcitonin (0.00-0.08) ng/mL Urine Clarity (Clear) Urine Protein (Neg-Trace) mg/dL Urine Urobilinogen (Less than 2) mg/dL Ur Leukocyte Esterase (Negative) Urine RBC (0-3) /hpf Urine WBC (0-5) /hpf Amorphous Sediment (None) /hpf Urine Bacteria (None) /hpf Urine Mucus (Occasional) /lpf Salicylates (2.8-20.0) mg/dL Acetaminophen (10.0-30.0) mcg/mL 11/26/17 11/26/17 11/26/17 Range/Units 07:25 08:07 08:07 MCH (27.0-34.0) pg MCHC (32.0-36.0) % RDW (11.6-17.2) % Neut % (Auto) (16.0-70.0) % Lymph % (Auto) (9.0-44.0) % Lymph # (Auto) (1.0-4.8) th/mm3 Band Neuts % (Manual) (0-6) % Lymphocytes % (Manual) (9-44) % Myelocytes % (Man) (0-0) % Abs Neuts (Manual) (1.8-7.7) th/mm3 Nucleated RBCs/100 WBC (0-0) /100 WBC Ovalocytes (None) PT (9.8-11.6) sec ABG pH 7.10 L* (7.380-7.420) ABG pCO2 35 L (38-42) mmHg ABG HCO3 10 L* (22-26) mmol/L ABG Base Excess -17.3 L (-2-2) mmol/L ABG Methemoglobin (0-2) % Hemoglobin (12.0-16.0) G/DL Sodium (136-145) meq/L Chloride (98-107) meq/L Carbon Dioxide (21.0-32.0) meq/L Anion Gap (5-15) meq/L BUN (7-18) mg/dL Creatinine (0.50-1.00) mg/dL Estimated GFR (>89) mL/min Random Glucose (74-106) mg/dL Osmolality (275-295) mosm/kg Lactic Acid 12.1 H* (0.4-2.0) mmol/L Calcium (8.5-10.1) mg/dL AST (15-37) U/L ALT (10-53) U/L Alkaline Phosphatase (45-117) U/L Ammonia 44 H (11-32) mcmol/L Total Creatine Kinase (26-192) U/L CK-MB (CK-2) (0.5-3.6) ng/mL Troponin I (0.02-0.05) ng/mL B-Natriuretic Peptide (0-100) pg/mL Total Protein (6.4-8.2) g/dL Albumin (3.4-5.0) g/dL Procalcitonin (0.00-0.08) ng/mL Urine Clarity (Clear) Urine Protein (Neg-Trace) mg/dL Urine Urobilinogen (Less than 2) mg/dL Ur Leukocyte Esterase (Negative) Urine RBC (0-3) /hpf Urine WBC (0-5) /hpf Amorphous Sediment (None) /hpf Urine Bacteria (None) /hpf Urine Mucus (Occasional) /lpf Salicylates (2.8-20.0) mg/dL Acetaminophen (10.0-30.0) mcg/mL 11/26/17 Range/Units 08:07 MCH (27.0-34.0) pg MCHC (32.0-36.0) % RDW (11.6-17.2) % Neut % (Auto) (16.0-70.0) % Lymph % (Auto) (9.0-44.0) % Lymph # (Auto) (1.0-4.8) th/mm3 Band Neuts % (Manual) (0-6) % Lymphocytes % (Manual) (9-44) % Myelocytes % (Man) (0-0) % Abs Neuts (Manual) (1.8-7.7) th/mm3 Nucleated RBCs/100 WBC (0-0) /100 WBC Ovalocytes (None) PT (9.8-11.6) sec ABG pH (7.380-7.420) ABG pCO2 (38-42) mmHg ABG HCO3 (22-26) mmol/L ABG Base Excess (-2-2) mmol/L ABG Methemoglobin (0-2) % Hemoglobin (12.0-16.0) G/DL Sodium (136-145) meq/L Chloride (98-107) meq/L Carbon Dioxide (21.0-32.0) meq/L Anion Gap (5-15) meq/L BUN (7-18) mg/dL Creatinine (0.50-1.00) mg/dL Estimated GFR (>89) mL/min Random Glucose (74-106) mg/dL Osmolality (275-295) mosm/kg Lactic Acid (0.4-2.0) mmol/L Calcium (8.5-10.1) mg/dL AST (15-37) U/L ALT (10-53) U/L Alkaline Phosphatase (45-117) U/L Ammonia (11-32) mcmol/L Total Creatine Kinase (26-192) U/L CK-MB (CK-2) (0.5-3.6) ng/mL Troponin I (0.02-0.05) ng/mL B-Natriuretic Peptide (0-100) pg/mL Total Protein (6.4-8.2) g/dL Albumin (3.4-5.0) g/dL Procalcitonin (0.00-0.08) ng/mL Urine Clarity (Clear) Urine Protein (Neg-Trace) mg/dL Urine Urobilinogen (Less than 2) mg/dL Ur Leukocyte Esterase (Negative) Urine RBC (0-3) /hpf Urine WBC (0-5) /hpf Amorphous Sediment (None) /hpf Urine Bacteria (None) /hpf Urine Mucus (Occasional) /lpf Salicylates (2.8-20.0) mg/dL Acetaminophen 32.8 H (10.0-30.0) mcg/mL Short CBC 11/26/17 Range/Units 06:08 WBC 8.8 (4.0-11.0) th/mm3 Hgb 11.7 (11.6-15.3) gm/dL Hct 38.4 (35.0-46.0) % Plt Count 289 (150-450) th/mm3 BMP 11/25/17 11/26/17 21:22 06:08 Sodium 143 146 H Potassium 4.3 3.9 Chloride 110 H 109 H Carbon Dioxide 17.4 L 14.6 L BUN 33 H 39 H Creatinine 2.68 H 3.40 H Calcium 8.7 8.2 L Cardiac Enzymes 11/25/17 11/25/17 11/26/17 Range/Units 16:39 21:22 06:08 Total Creatine Kinase 792 H 1024 H 1823 H (26-192) U/L CK-MB (CK-2) 19.8 H 28.0 H 41.0 H (0.5-3.6) ng/mL Troponin I 0.12 H 0.17 H (0.02-0.05) ng/mL Liver Function 11/25/17 11/26/17 Range/Units 21:22 06:08 Total Bilirubin 0.5 0.5 (0.2-1.0) mg/dL AST 108 H 255 H (15-37) U/L ALT 35 81 H (10-53) U/L Alkaline Phosphatase 128 H 96 (45-117) U/L Albumin 3.1 L 2.6 L (3.4-5.0) g/dL Urine 11/25/17 Range/Units 14:00 Urine Color Maura (Yellw/Straw) Urine Clarity Cloudy H (Clear) Urine pH 5.0 (5.0-8.5) Ur Specific [place] 1.026 (1.002-1.035) Urine Protein 30 H (Neg-Trace) mg/dL Urine Glucose (UA) Negative (Negative) mg/dL <Claudine Lassiter - 11/26/17 15:34> - Imaging Impressions Chest X-Ray 11/25/17 20:31 CONCLUSION: Worsening bilateral pulmonary infiltrates, most conspicuously in the right upper lobe and left base. Abdomen X-Ray 11/26/17 00:00 CONCLUSION: Nonobstructive bowel gas pattern. Abdomen/Pelvis CT 11/26/17 00:00 CONCLUSION: 1. Diverticulosis without diverticulitis. 2. Bilateral pulmonary infiltrates. Chest X-Ray 11/26/17 06:00 CONCLUSION: No significant interval change. <Claudine Lassiter - 11/26/17 15:34> Physical Exam Vital signs: Vital Signs 11/25/17 15:56 11/25/17 17:36 11/25/17 19:58 Temperature 98.2 F Pulse Rate 80 70 72 Respiratory Rate 20 20 21 Blood Pressure 109/53 L 97/52 L Pulse Oximetry 95 94 L 11/25/17 20:00 11/25/17 20:05 11/25/17 23:14 Temperature 97.9 F Pulse Rate 69 Respiratory Rate 19 Blood Pressure 101/55 L Pulse Oximetry 92 L 94 L 94 L 11/25/17 23:28 11/25/17 23:30 11/25/17 23:41 Temperature 98.7 F Pulse Rate 73 70 Respiratory Rate 32 H 32 H Blood Pressure 142/65 H Pulse Oximetry 93 L 94 L 11/26/17 00:00 11/26/17 00:44 11/26/17 00:50 Temperature 98.9 F Pulse Rate 101 H 68 Respiratory Rate 29 H 32 H 21 Blood Pressure 122/68 Pulse Oximetry 94 L 94 L 11/26/17 03:21 11/26/17 03:54 11/26/17 07:00 Temperature Pulse Rate 68 72 Respiratory Rate 24 29 H 24 Blood Pressure 125/60 Pulse Oximetry 95 100 11/26/17 08:00 11/26/17 08:18 11/26/17 08:44 Temperature Pulse Rate 72 Respiratory Rate 23 Blood Pressure Pulse Oximetry 100 100 11/26/17 08:45 11/26/17 11:00 11/26/17 11:50 Temperature 97 F L Pulse Rate 70 Respiratory Rate 23 24 23 Blood Pressure 93/68 L Pulse Oximetry 97 11/26/17 12:19 Temperature Pulse Rate Respiratory Rate Blood Pressure Pulse Oximetry 97 Intake & Output 11/25/17 11/26/17 11/26/17 18:59 06:59 18:59 Intake Total 600 / 600 150 / 150 Output Total 200 / 200 Balance 400 / 400 150 / 150 Weight 90.718 kg 111.7 kg Intake: IV 500 / 500 150 / 150 Ofirmev Inj 1,000 mg In 100 ml 200 / 200 100 / 100 @ 400 mls/hr IV.SIG ONCE ONE Rx #:[id number] Azithromycin Inj 500 MG In NS 250 / 250 Inj 250 ML @ 250 mls/hr IV.SIG Q24H [facility] Rx#:[id number] Zosyn 2.25 GM Premix 50 ML @ 50 / 50 50 / 50 100 mls/hr IV.SIG Q8HR [facility] Rx#: [id number] Oral 100 / 100 0 / 0 Output: Urine 200 / 200 Other: # Voids 2 1 Date of Last Bowel Movement 11/25/17 11/25/17 11/25/17 # Bowel Movements 3 0 <Claudine Lassiter - 11/26/17 15:34> - Constitutional moderate distress, agitated <Claudine Lassiter - 11/26/17 15:34> - Routine Neurological Exam Present: alert (Oriented 2 per nursing). Absent: motor deficit <Claudine Lassiter - 11/26/17 15:34> Assessment and Plan - Assessment (1) Respiratory distress Code(s): R06.03 - Acute respiratory distress Status: Acute (2) Altered mental status Code(s): R41.82 - Altered mental status, unspecified Status: Acute (3) Opioid overdose Code(s): T40.2X1A - Poisoning by other opioids, accidental (unintentional), initial encounter Status: Acute (4) CHF (congestive heart failure) Code(s): I50.9 - Heart failure, unspecified Status: Acute (5) Elevated troponin Code(s): R74.8 - Abnormal levels of other serum enzymes Status: Acute (6) Elevated serum creatinine Code(s): R79.89 - Other specified abnormal findings of blood chemistry Status : Acute (7) Nutrition, metabolism, and development symptoms Code(s): R63.8 - Other symptoms and signs concerning food and fluid intake Status: Acute <Logan Roman - 11/28/17 07:28> (1) Respiratory distress Code(s): R06.03 - Acute respiratory distress Status: Acute Plan: Due to opiate overdose versus aspiration pneumonia versus CHF fluid overload versus COPD exacerbation versus pneumonia versus PE -Patient with GCS of 3 initially in ED, poor respiration effort, saturations in the 80s on site -PH continues to show severe acidosis, last pH is 7.10, PCO2 35, bicarb 10 -Recent acetaminophen level 32.8 -Patient is DNR, on hospice care, and the family does not want to treat the pneumonia with IV antibiotics so antibiotics have been stopped On admission: On exam respiratory rate 20, blood pressure 97/52, 95% O2 on 10 L O2 ABG: PH 7.25, bicarb 19 Follow-up repeat ABG Chest x-ray: Asymmetric interstitial prominence on right, asymmetric pulmonary edema versus developing infiltrate. Cardiomegaly Follow-up pro calcitonin Follow-up BNP If repeat ABG continues to be poor, we may consider monitoring in the ICU (2) Altered mental status Code(s): R41.82 - Altered mental status, unspecified Status: Acute Plan: Due to opiate overdose versus CHF fluid overload versus COPD exacerbation versus pneumonia versus PE versus MT versus stroke -On hospice as above CT head negative Improvement seen status post Narcan 2 mg IV push, with 1 L IV bolus normal saline, Narcan 1 mg IV push given again overnight for hypoventilation Follow-up plan as above Follow-up ACS workup Stroke workup low on differential at this time (3) Opioid overdose Code(s): T40.2X1A - Poisoning by other opioids, accidental (unintentional), initial encounter Status: Acute Plan: Status post Narcan IM 2 mg and additional 1 mg for hypoventilation On hospice care, continue comfort care (4) CHF (congestive heart failure) Code(s): I50.9 - Heart failure, unspecified Status: Acute Plan: History of CHF with an ejection fraction of 30% per family evidence of edema versus aspiration pneumonia on chest x-ray Comfort care only (5) Elevated troponin Code(s): R74.8 - Abnormal levels of other serum enzymes Status: Acute Plan: Increasing troponins on admission May be due to cardiac ischemia versus elevated creatinine versus other, continue hospice care A candidate for catheterization anytime in the future (6) Elevated serum creatinine Code(s): R79.89 - Other specified abnormal findings of blood chemistry Status : Acute Plan: Creatinine 3.40 this morning, from 1.77 on admission STORMY vs AK I on CKD versus drug overdose induced caution w/ nephrotoxins, NSAIDS On hospice, not a candidate for dialysis (7) Nutrition, metabolism, and development symptoms Code(s): R63.8 - Other symptoms and signs concerning food and fluid intake Status: Acute Plan: Fluids: Continue sodium bicarbonate for acidosis, speech therapy cleared for clear fluids only Electrolytes: Follow-up BMP, however treating conservatively Nutrition: Speech therapy has cleared the patient for clear fluids DVT prophylaxis: N/A, hospice <Claudine Lassiter - 11/26/17 15:08> - Assessment and Plan Discharge Planning: Under hospice care <Claudine Lassiter - 11/26/17 15:34> - Attending Attestation The exam, history, and the medical decision-making described in the above note were completed with the assistance of the resident physician. I reviewed and agree with the findings presented. I attest that I had a [id number] encounter with the patient on the same day, and personally performed and documented my assessment and findings in the medical record.Staci NICOLAS <Logan Roman - 11/28/17 07:28>
--- NOTE | 2017-11-26 17:09 | P.CONPSY ---
Provisional Diagnosis Admission Date: November 25, 2017 14:29 [place] I.: Psychological and behavioral factors affecting associated with disorders or diseases classified elsewhere, altered mental status, opiate overdose History of Present Illness Service: Psychiatry Consult date: 11/26/17 Reason for Consult: Overdose Primary Care Provider: UNKNOWN Chief Complaint: AMS History of Present Illness: Patient is a 77 y/o woman, , domiciled with , with unknown past psychiatric history, with a past medical history as per chart for DVT, PE, hypertension and CHF was brought to the ED after patient's and found patient unresponsive in her vehicle with subsequent admission to the medical service for medical stabilization and psychiatry was consulted for evaluation of recent overdose. Discussion nursing staff reported the patient alert and oriented only to person, minimally interactive verbally with staff and the patient is scheduled for hospice care at this time. Patient was found lying hospital bed, unable to engage in interview as patient appeared confused and appearing to be in mild distress which at time of interview nursing staff was administering analgesics for pain control. It is unclear at this time with the patient had intentional overdose or whether it was accidental but currently unable to participate in interview at this time. Review of Systems unobtainable due to mental condition, unobtainable due to mental status PMFSH - History History Provided By: Patient, Medical Record - Medical / Surgical Hx Neg / Unobtainable Medical Problems Denied: Unable to Obtain - Medical History Medical History: Medical History (Last Reviewed 11/26/17 @ 07:56 by Jess Sabillon) CHF (congestive heart failure) Hx of hysterectomy Pacemaker - Surgical History Surgical History: Surgical History (Last Reviewed 11/26/17 @ 07:56 by Jess Sabillon) History of total left knee replacement (TKR) Hx of appendectomy Hx of cardiac catheterization Hx of cholecystectomy - Tobacco History Smoking Status: Former smoker Tobacco Type: Cigarettes - Alcohol History How Often Do You Have a Drink Containing Alcohol: Never - Substance Use History Substance History: No History of Abuse - Travel History Recent Travel in the [place] Within the Last 8 Weeks: No Recent Travel Out of the Country Within the Last 8 Weeks: No - Immunization History Tetanus Immunization: Unsure Hx Influenza Vaccine This Season: Unable to Assess Medications and Allergies Active Medications: Active Medications Al Hydroxide/Mg Hydroxide (Milk Of Magnesia Liq) 30 ml PO Q12H PRN PRN Reason: Mild Constipation Albuterol (Albuterol Neb (Prn)) 2.5 mg NEB Q2HR NEB PRN PRN Reason: SHORTNESS OF BREATH Last Admin: 11/26/17 00:18 Dose: 2.5 mg Albuterol (Duoneb Neb (Barney)) 1 ampul NEB Q6HR NEB BARNEY Last Admin: 11/26/17 16:28 Dose: Not Given Bisacodyl (Dulcolax Supp) 10 mg RECTAL DAILY PRN PRN Reason: SEVERE CONSITIPATION Sodium Bicarbonate 150 meq/ (Dextrose) 1,000 mls @ 100 mls/hr IV.CONT .Q10H BARNEY Last Admin: 11/26/17 10:44 Dose: 50 mls/hr Lactulose (Lactulose Liq) 30 ml PO DAILY PRN PRN Reason: SEVERE CONSITIPATION Lorazepam (Ativan Inj) 1 mg IV.PUSH Q2H PRN PRN Reason: AGITATION Last Admin: 11/26/17 10:16 Dose: 1 mg Morphine Sulfate (Morphine Inj) 2 mg IV.PUSH Q3H PRN PRN Reason: PAIN SCALE 6 TO 10 Last Admin: 11/26/17 15:26 Dose: 2 mg Morphine Sulfate (Morphine Inj) 4 mg IV.PUSH Q2H PRN PRN Reason: BREAKTHROUGH PAIN Last Admin: 11/26/17 14:00 Dose: 4 mg Ondansetron HCl (Zofran Inj) 4 mg IV.PUSH Q6H PRN PRN Reason: NAUSEA OR VOMITING Sennosides (Senokot) 17.2 mg PO Q12H PRN PRN Reason: Moderate Constipation Sodium Chloride (Ns Flush) 2 ml IV.FLUSH PRN PRN PRN Reason: FLUSH AFTER USING IV ACCESS Sodium Chloride (Ns Flush) 2 ml IV.FLUSH BID [facility] Last Admin: 11/26/17 08:44 Dose: 2 ml Allergies Allergy/AdvReac Type Severity Reaction Status Date / Time No Known Allergies Allergy Unverified 11/25/17 11:48 Home Medications Medication Instructions Recorded Confirmed Type acetaminophen-codeine 1 tab PO Q6-8H PRN 11/25/17 11/25/17 History [Tylenol-Codeine #3] furosemide [Lasix] 20 mg PO DAILY 11/25/17 11/25/17 History tramadol 50 mg PO BID PRN 11/25/17 11/25/17 History Exam Vital signs: Vital Signs 11/25/17 17:36 11/25/17 19:58 11/25/17 20:00 Temperature 98.2 F Pulse Rate 70 72 Respiratory Rate 20 21 Blood Pressure 97/52 L Pulse Oximetry 94 L 92 L 11/25/17 20:05 11/25/17 23:14 11/25/17 23:28 Temperature 97.9 F Pulse Rate 69 73 Respiratory Rate 19 32 H Blood Pressure 101/55 L Pulse Oximetry 94 L 94 L 93 L 11/25/17 23:30 11/25/17 23:41 11/26/17 00:00 Temperature 98.7 F Pulse Rate 70 101 H Respiratory Rate 32 H 29 H Blood Pressure 142/65 H Pulse Oximetry 94 L 94 L 11/26/17 00:44 11/26/17 00:50 11/26/17 03:21 Temperature 98.9 F Pulse Rate 68 68 Respiratory Rate 32 H 21 24 Blood Pressure 122/68 Pulse Oximetry 94 L 95 11/26/17 03:54 11/26/17 07:00 11/26/17 08:00 Temperature Pulse Rate 72 72 Respiratory Rate 29 H 24 Blood Pressure 125/60 Pulse Oximetry 100 100 11/26/17 08:18 11/26/17 08:44 11/26/17 08:45 Temperature Pulse Rate Respiratory Rate 23 23 Blood Pressure Pulse Oximetry 100 11/26/17 11:00 11/26/17 11:50 11/26/17 12:19 Temperature 97 F L Pulse Rate 70 Respiratory Rate 24 23 Blood Pressure 93/68 L Pulse Oximetry 97 97 Intake & Output 11/25/17 11/26/17 11/26/17 18:59 06:59 18:59 Intake Total 600 / 600 150 / 150 Output Total 200 / 200 Balance 400 / 400 150 / 150 Weight 90.718 kg 111.7 kg Intake: IV 500 / 500 150 / 150 Ofirmev Inj 1,000 mg In 100 ml 200 / 200 100 / 100 @ 400 mls/hr IV.SIG ONCE ONE Rx #:[id number] Azithromycin Inj 500 MG In NS 250 / 250 Inj 250 ML @ 250 mls/hr IV.SIG Q24H BARNEY Rx#:[id number] Zosyn 2.25 GM Premix 50 ML @ 50 / 50 50 / 50 100 mls/hr IV.SIG Q8HR BARNEY Rx#: [id number] Oral 100 / 100 0 / 0 Output: Urine 200 / 200 Other: # Voids 2 1 Date of Last Bowel Movement 11/25/17 11/25/17 11/25/17 # Bowel Movements 3 0 - Constitutional moderate distress, obese Mental Status Examination Appearance: Other (In hospital gown) Consciousness: Clouded Orientation: Person Speech: Other (Unable to assess due to current mental status) Language: Other (Unable to assess due to current mental status) Attention and Concentration: Inadequate Mood: Other (Unable to assess due to current mental status) Affect: Anxious Thought Process & Associations: Other (Unable to assess due to current mental status) Thought Content: Other (Unable to assess due to current mental status) Hallucination Type: Other (Unable to assess due to current mental status) Delusion Type: Other (Unable to assess due to current mental status) Mental Status Exam Remarks: Patient was unable to engage in interview, rest of mental status unable to be assessed at this time Assessment and Plan - Assessment (1) Psychological and behavioral factors associated with disorders or diseases classified elsewhere Code(s): F54 - Psychological and behavioral factors associated with disorders or diseases classified elsewhere Status: Acute (2) Altered mental status Code(s): R41.82 - Altered mental status, unspecified Status: Acute (3) Opioid overdose Code(s): T40.2X1A - Poisoning by other opioids, accidental (unintentional), initial encounter Status: Acute - Plan Plan: Estimated LOS: [] days Patient is a 77 y/o woman, , domiciled with , with unknown past psychiatric history, with a past medical history as per chart for DVT, PE, hypertension and CHF was brought to the ED after patient's and found patient unresponsive in her vehicle with subsequent admission to the medical service for medical stabilization and psychiatry was consulted for evaluation of recent overdose. Patient this time is unable to participate effectively in interview due to ongoing delirium secondary to current medical conditions. Patient scheduled to be transferred to hospice care as patient is also DNR/DNI. If and when patient recovers medically and is medically stable please reconsult when patient is able to participate in interview. Consult appreciated. Justification for Continued Inpatient Stay: At risk of further decompensation a lower level of care.
--- NOTE | 2017-11-26 22:30 | ECG ---
Date Performed: 11/25/2017 Time Performed: 19:30:42 PTAGE: 77 years EKG: ELECTRONIC VENTRICULAR PACEMAKER ABNORMAL RHYTHM ECG PREVIOUS TRACING : 11/25/2017 11.49 DOCTOR: Eric Mallory Interpretating Date/Time 11/26/2017 22:27:17
--- NOTE | 2017-11-26 22:46 | ECG ---
Date Performed: 11/25/2017 Time Performed: 11:49:01 PTAGE: 77 years EKG: ELECTRONIC VENTRICULAR PACEMAKER ABNORMAL RHYTHM ECG NO PREVIOUS TRACING DOCTOR: Eric Mallory Interpretating Date/Time 11/26/2017 22:43:54
== END 2017-11-26 17:11 | disposition hospice, inpatient (51) ==
LOC: NEPC 11:23 → NEDA 14:29 → N05 17:23 → N03 11-26 05:25
PROVIDERS: ADMIT Family Medicine; ATTEND Family Medicine